=== PATIENT | male | born 1960 | race Hispanic/Latino ===

== ENCOUNTER 2018-07-02 11:58 | Emergency (ER) | payer MEDICARE ==
[2018-07-02 12:33] LABS: Basophils % (Auto) 0.5 % (0.0-1.8); Eosinophils % (Auto) 0.5 % (0.0-4.3); Hematocrit 48.4 % (35.5-45.6); Hemoglobin 16.3 gm/dl (11.8-15.2); Lymphocytes # (Auto) 2.1 K/mm3 (1.2-5.4); Lymphocytes % (Auto) 23.9 % (13.4-35.0); Mean Corpuscular HGB Conc 34 % (32-34); Mean Corpuscular Hemoglobin 31 pg (28-32); Mean Corpuscular Volume 90 fl (84-94); Monocytes # (Auto) 1.1 K/mm3 (0.0-0.8); Platelet Count 340 K/mm3 (140-440); Red Blood Count 5.35 M/mm3 (3.65-5.03); Red Cell Distribution Width 14.2 % (13.2-15.2)
[2018-07-02 12:49] LABS: Alanine Aminotransferase 14 units/L (7-56); Albumin 4.1 g/dL (3.9-5); BUN/Creatinine Ratio 18; Blood Urea Nitrogen 14 mg/dL (9-20); Calcium 9.1 mg/dL (8.4-10.2); Hemolysis Index 22
[2018-07-02 13:11] LABS: Bacteria,Urine 4+ /HPF (Negative); Bilirubin,Urine NEG (Negative); Blood,Urine MOD (Negative); Color,Urine Yellow (Yellow); Mucus,Urine 1+ /HPF; Protein,Urine >500 mg/dL (Negative); Urobilinogen,Urine < 2.0 mg/dL (<2.0); WBC,Urine > 182.0 /HPF (0.0-6.0)
[2018-07-02] MEDS ORDERED: NACL 0.9% 1000 ML 1,000 ML IV ONE (14:26)
--- NOTE | 2018-07-02 14:27 | Emergency Department Report ---
ED General Adult HPI - General Chief complaint: Urogenital-Male Stated complaint: UTI Time Seen by Provider: 07/02/18 14:15 Source: patient, family, RN notes reviewed Mode of arrival: Wheelchair Limitations: Physical Limitation - History of Present Illness Initial comments: This is a 57-year-old gentleman who is not known to this provider previously. The patient endorses a past medical history of stroke, residual right-sided weakness, deaf. He is accompanied by his family who provide most of the history. His primary care doctor is Dr. Torito Suazo. He is sent to the ER for evaluation of urinary symptoms. Patient's been having frequent urination and urgency. His family endorses that the patient is at his normal mental status and appears to be at baseline. They deny fevers, chills, lethargy, irritability or projectile vomiting. Patient has baseline poor cognitive skills, the family indicates that he is very worried about being in the hospital. Patient at some point complained of lower back pain but denies this to me. Family endorses no exacerbating or relieving factors, or radiation effect is. They report that the patient gets frequent UTIs, that he had a urinary tract infection 2 months ago, and a his presentation today does not appear to be any different from prior presentation. -: Gradual, days(s) Severity scale (0 -10): 5 Consistency: constant Improves with: none Worsens with: none Associated Symptoms: weakness (chronic). denies: chest pain, cough, diaphoresis , fever/chills, headaches, loss of appetite, malaise, nausea/vomiting, rash, seizure, shortness of breath, syncope - Related Data Previous Rx's Medication Instructions Recorded Last Taken Type Phenazopyridine [Pyridium] 100 mg PO TID PRN #6 tab 07/02/18 Unknown Rx levoFLOXacin [Levaquin] 750 mg PO QDAY #7 tablet 07/02/18 Unknown Rx Allergies Allergy/AdvReac Type Severity Reaction Status Date / Time No Known Allergies Allergy Unverified 07/02/18 12:01 ED Review of Systems ROS: Stated complaint: UTI Other details as noted in HPI Constitutional: denies: fever Eyes: denies: eye discharge ENT: denies: epistaxis Respiratory: denies: cough Cardiovascular: denies: syncope Gastrointestinal: denies: nausea, vomiting Genitourinary: urgency, dysuria, frequency Musculoskeletal: back pain Skin: denies: lesions Neurological: weakness (chronic) ED Past Medical Hx - Past Medical History Previous Medical History?: Yes Hx CVA: Yes (right sided weakness) Hx Seizures: Yes (at age 6 or 7) Additional medical history: mini stroke - Surgical History Past Surgical History?: Yes Additional Surgical History: bilateral leg surgery - Social History Smoking Status: Never Smoker Substance Use Type: None - Medications Home Medications: Home Medications Medication Instructions Recorded Confirmed Last Taken Type Phenazopyridine [Pyridium] 100 mg PO TID PRN #6 tab 07/02/18 Unknown Rx levoFLOXacin [Levaquin] 750 mg PO QDAY #7 tablet 07/02/18 Unknown Rx ED Physical Exam - General Limitations: Physical Limitation General appearance: alert, in no apparent distress - Head Head exam: Present: atraumatic, normocephalic - Eye Eye exam: Present: normal appearance. Absent: nystagmus - ENT ENT exam: Present: normal orophraynx, mucous membranes moist, normal external ear exam - Neck Neck exam: Present: normal inspection, full ROM. Absent: tenderness, meningismus - Respiratory Respiratory exam: Present: normal lung sounds bilaterally. Absent: respiratory distress - Cardiovascular Cardiovascular Exam: Present: regular rate, normal rhythm, normal heart sounds. Absent: bradycardia, tachycardia, irregular rhythm, systolic murmur, diastolic murmur, rubs, gallop - GI/Abdominal GI/Abdominal exam: Present: soft. Absent: distended, tenderness, guarding, rebound, rigid, pulsatile mass - Rectal Rectal exam: Present: normal inspection, other (there is no prior perenium. Chaperoned by nurse RICHARD GRESHAM) - exam: Present: normal inspection, other (chaperonne by RICHARD GRESHAM). Absent: testicular tenderness External exam: Present: normal external exam - Extremities Exam Extremities exam: Present: normal inspection, other (2+ pulses in the upper, lower extremities. Compartments soft. No long bony tenderness) - Back Exam Back exam: Present: normal inspection, full ROM. Absent: CVA tenderness (R), CVA tenderness (L), paraspinal tenderness, vertebral tenderness - Neurological Exam Neurological exam: Present: alert, other (patient is awake. He follows some commands. Left-sided chronic exotropic strabismus. Unable to complete a full detailed neurologic examination secondary to patient's inability to here. Family corroborates that he appears to be his normal mental status.) - Psychiatric Psychiatric exam: Present: normal affect, normal mood - Skin Skin exam: Present: warm, dry, intact, normal color. Absent: rash ED Course Vital Signs 07/02/18 07/02/18 12:01 13:45 Temperature 98.1 F 98.6 F Pulse Rate 101 H 89 Respiratory 16 22 Rate Blood Pressure 131/87 Blood Pressure 140/90 [Left] O2 Sat by Pulse 94 94 Oximetry ED Medical Decision Making - Lab Data Result diagrams: 07/02/18 12:17 07/02/18 12:13 Vital Signs 07/02/18 07/02/18 12:01 13:45 Temperature 98.1 F 98.6 F Pulse Rate 101 H 89 Respiratory 16 22 Rate Blood Pressure 131/87 Blood Pressure 140/90 [Left] O2 Sat by Pulse 94 94 Oximetry Lab Results 07/02/18 07/02/18 07/02/18 Range/Units 12:13 12:17 12:49 WBC 8.8 (4.5-11.0) K/mm3 RBC 5.35 H (3.65-5.03) M/mm3 Hgb 16.3 H (11.8-15.2) gm/dl Hct 48.4 H (35.5-45.6) % MCV 90 (84-94) fl MCH 31 (28-32) pg MCHC 34 (32-34) % RDW 14.2 (13.2-15.2) % Plt Count 340 (140-440) K/mm3 Lymph % (Auto) 23.9 (13.4-35.0) % [place] % (Auto) 13.0 H (0.0-7.3) % Eos % (Auto) 0.5 (0.0-4.3) % Baso % (Auto) 0.5 (0.0-1.8) % Lymph # 2.1 (1.2-5.4) K/mm3 [place] # 1.1 H (0.0-0.8) K/mm3 Eos # 0.0 (0.0-0.4) K/mm3 Baso # 0.0 (0.0-0.1) K/mm3 Seg Neutrophils % 62.1 (40.0-70.0) % Seg Neutrophils # 5.5 (1.8-7.7) K/mm3 Sodium 140 (137-145) mmol/L Potassium 4.1 (3.6-5.0) mmol/L Chloride 101.6 (98-107) mmol/L Carbon Dioxide 25 (22-30) mmol/L Anion Gap 18 mmol/L BUN 14 (9-20) mg/dL Creatinine 0.8 (0.8-1.5) mg/dL Estimated GFR > 60 ml/min BUN/Creatinine Ratio 18 % Glucose 97 (75-100) mg/dL Calcium 9.1 (8.4-10.2) mg/dL Total Bilirubin 0.40 (0.1-1.2) mg/dL AST 19 (5-40) units/L ALT 14 (7-56) units/L Alkaline Phosphatase 74 (35-129) units/L Total Protein 7.4 (6.3-8.2) g/dL Albumin 4.1 (3.9-5) g/dL Albumin/Globulin Ratio 1.2 % Urine Color Yellow (Yellow) Urine Turbidity Turbid (Clear) Urine pH 6.0 (5.0-7.0) Ur Specific [place] 1.016 (1.003-1.030) Urine Protein >500 (Negative) mg/dL Urine Glucose (UA) Neg (Negative) mg/dL Urine Ketones Neg (Negative) mg/dL Urine Blood Mod (Negative) Urine Nitrite Neg (Negative) Urine Bilirubin Neg (Negative) Urine Urobilinogen < 2.0 (<2.0) mg/dL Ur Leukocyte Esterase Lg (Negative) Urine WBC (Auto) > 182.0 H (0.0-6.0) /HPF Urine RBC (Auto) 115.0 (0.0-6.0) /HPF U Epithel Cells (Auto) 2.0 (0-13.0) /HPF Urine Bacteria (Auto) 4+ (Negative) /HPF Urine WBC Clumps 2+ /HPF Urine Mucus 1+ /HPF - Medical Decision Making Differential diagnosis, including but not limited to: Urinary tract infection, pyelonephritis Assessment and plan: 57-year-old male with urinary symptoms but no CVA tenderness, no fever, no vomiting, no leukocytosis. Family endorses history of frequent and intermittent urinary tract infections last of which was 2 months ago. Even his physical exam, vital signs and laboratory studies, I think it is very unlikely the patient has an upper urinary tract infection. Extensive discussion had with patient's family. They are amenable to a trial of oral outpatient antibiotic therapy. They're reliable to bring the patient back if he decompensates clinically. The patient has been observed in the ER for hours without clinical decompensation. He is loaded with 1 g of Rocephin and will be discharged with Levaquin. The risks of fluoroquinolone tendinopathy were discussed with family who verbalized understanding, including risk of tendon rupture, and they gave verbal consent for this medication. Critical care attestation.: If time is entered above; I have spent that time in minutes in the direct care of this critically ill patient, excluding procedure time. ED Disposition Clinical Impression: UTI (urinary tract infection) Qualifiers: Urinary tract infection type: acute cystitis Disposition: - TO HOME OR SELFCARE Is pt being admited?: No Does the pt Need Aspirin: No Condition: Stable Instructions: Urinary Tract Infection in Men (ED) Additional Instructions: Take the medications as directed. Return in 2 days for repeat checkup/ evaluation. Cultures were sent today, and was also be available in the next 3- 5 days. Have your primary care doctor contact the medical records department to obtain culture results. Take the Pyridium medication as needed for discomfort. Side effect of this medication includes change in color of body fluids to [place]. Return to the ER right away with fevers, lethargy, irritability, projectile vomiting, change in mental status, confusion, inability to tolerate liquid feeds. Referrals: TORITO SUAZO MD [Referring] - 3-5 Days
[2018-07-02] MEDS ORDERED: ROCEPHIN/NS 1 GM/50 ML 1 GM/50 ML BAG IV ONE (15:00)
[2018-07-02 17:41] VITALS: BP 143/83
== END 2018-07-02 16:10 | disposition home or self-care (01) ==
LOC: ED 11:58
DX: N30.00 Acute cystitis without hematuria (principal); Z86.73 Personal history of transient ischemic attack (TIA), and cerebral infarction without residual deficits
CPT/HCPCS: 36415; 80053; 81001; 85025; 87086; 96365; 99283; J0696; J7030

== ENCOUNTER 2019-10-09 08:16 | Inpatient (IN) | payer MEDICARE ==
[2019-10-09] MEDS ORDERED: SODIUM CHLORIDE 0.9% 1000 ML IV SOLN IV ONE (09:39)
--- NOTE | 2019-10-09 09:39 | Emergency Department Report ---
ED General Adult HPI - General Chief complaint: Urogenital-Male Stated complaint: POSS PROSTATE ISSUE/PAIN Time Seen by Provider: 10/09/19 09:38 Source: patient Mode of arrival: Wheelchair Limitations: Altered Mental Status - History of Present Illness Initial comments: Pt is a pleasant 58-year-old male who is brought to the ER by his brother who is his caregiver for concerns with patient's inability to urinate. Patient has an underlying seizure disorder since a child and he has had a stroke and therefore has limited mobility and impaired mental density. Does answer questions but she have to deliberately ask the patient otherwise he will allow his brother to answer for him. Patient is cooperative. Brother states that the patient does not walk that he gets around by crawling. Pt appears well cared for PCP Dr. Thomas Patient is followed by a home health provider and has been treated with 2 recent courses of antibiotics including sulfa and now Cipro. That brother reports that the difficulties with urinating are getting worse. He denies any fever. Patient does not appear to be in pain and denies pain. 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 CVA HPLD DEPRESSION RX LIPITOR CELEXA -: Gradual, days(s) Associated Symptoms: denies other symptoms Treatments Prior to Arrival: other - Related Data Previous Rx's Medication Instructions Recorded Last Taken Type Phenazopyridine [Pyridium] 100 mg PO TID PRN #6 tab 07/02/18 Unknown Rx levoFLOXacin [Levaquin] 750 mg PO QDAY #7 tablet 07/02/18 Unknown Rx Allergies Allergy/AdvReac Type Severity Reaction Status Date / Time No Known Allergies Allergy Unverified 07/02/18 12:01 ED Review of Systems ROS: Stated complaint: POSS PROSTATE ISSUE/PAIN Other details as noted in HPI Comment: All other systems reviewed and negative ED Past Medical Hx - Past Medical History Hx CVA: Yes (right sided weakness) Hx Seizures: Yes (at age 6 or 7) Additional medical history: mini stroke - Surgical History Past Surgical History?: Yes Additional Surgical History: bilateral leg surgery - Family History Family history: no significant - Social History Smoking Status: Never Smoker Substance Use Type: None - Medications Home Medications: Home Medications Medication Instructions Recorded Confirmed Last Taken Type Phenazopyridine [Pyridium] 100 mg PO TID PRN #6 tab 07/02/18 Unknown Rx levoFLOXacin [Levaquin] 750 mg PO QDAY #7 tablet 07/02/18 Unknown Rx ED Physical Exam - General Limitations: Altered Mental Status General appearance: alert, in no apparent distress - Head Head exam: Present: atraumatic, normocephalic - Eye Eye exam: Present: normal appearance - ENT ENT exam: Present: mucous membranes dry - Neck Neck exam: Present: normal inspection - Respiratory Respiratory exam: Present: normal lung sounds bilaterally. Absent: respiratory distress - Cardiovascular Cardiovascular Exam: Present: regular rate, normal rhythm. Absent: systolic murmur, diastolic murmur, rubs, gallop - GI/Abdominal GI/Abdominal exam: Present: soft, normal bowel sounds - Rectal Rectal exam: Present: deferred - Extremities Exam Extremities exam: Present: normal inspection - Back Exam Back exam: Present: normal inspection - Neurological Exam Neurological exam: Present: alert - Psychiatric Psychiatric exam: Present: other - Skin Skin exam: Present: warm, dry, normal color. Absent: rash ED Course Vital Signs 10/09/19 10/09/19 10/09/19 08:25 11:22 11:24 Temperature 97.6 F Pulse Rate 81 88 Respiratory 18 16 18 Rate Blood Pressure 134/84 Blood Pressure 134/73 [Left] O2 Sat by Pulse 94 94 Oximetry ED Medical Decision Making - Lab Data Result diagrams: 10/09/19 10:23 10/09/19 10:23 - Medical Decision Making Labs 10/09/19 10/09/19 10/09/19 10:23 10:23 10:23 WBC 8.7 RBC 4.66 Hgb 14.4 Hct 42.5 MCV 91 MCH 31 MCHC 34 RDW 14.4 Plt Count 330 Lymph % (Auto) 18.8 [place] % (Auto) 11.7 H Eos % (Auto) 0.1 Baso % (Auto) 1.6 Lymph # 1.6 [place] # 1.0 H Eos # 0.0 Baso # 0.1 Seg Neutrophils % 67.8 Seg Neutrophils # 5.9 Sodium 138 Potassium 3.2 L Chloride 97.0 L Carbon Dioxide 23 Anion Gap 21 BUN 10 Creatinine 0.8 Estimated GFR > 60 BUN/Creatinine Ratio 13 Glucose 113 H Lactic Acid 1.30 Calcium 9.0 Total Bilirubin 0.60 AST 27 ALT 19 Alkaline Phosphatase 53 Total Protein 6.9 Albumin 4.0 Albumin/Globulin Ratio 1.4 Urine Color Urine Turbidity Urine pH Ur Specific [place] Urine Protein Urine Glucose (UA) Urine Ketones Urine Blood Urine Nitrite Urine Bilirubin Urine Urobilinogen Ur Leukocyte Esterase Urine WBC (Auto) Urine RBC (Auto) Urine Bacteria (Auto) 10/09/19 Unknown WBC RBC Hgb Hct MCV MCH MCHC RDW Plt Count Lymph % (Auto) [place] % (Auto) Eos % (Auto) Baso % (Auto) Lymph # [place] # Eos # Baso # Seg Neutrophils % Seg Neutrophils # Sodium Potassium Chloride Carbon Dioxide Anion Gap BUN Creatinine Estimated GFR BUN/Creatinine Ratio Glucose Lactic Acid Calcium Total Bilirubin AST ALT Alkaline Phosphatase Total Protein Albumin Albumin/Globulin Ratio Urine Color [place] Urine Turbidity Slightly-cloudy Urine pH 6.0 Ur Specific [place] 1.011 Urine Protein 100 mg/dl Urine Glucose (UA) Neg Urine Ketones Neg Urine Blood Mod Urine Nitrite Pos Urine Bilirubin Neg Urine Urobilinogen 4.0 Ur Leukocyte Esterase Mod Urine WBC (Auto) 85.0 H Urine RBC (Auto) 8.0 Urine Bacteria (Auto) 4+ Vital Signs 10/09/19 10/09/19 10/09/19 08:25 11:22 11:24 Temperature 97.6 F Pulse Rate 81 88 Respiratory 18 16 18 Rate Blood Pressure 134/84 Blood Pressure 134/73 [Left] O2 Sat by Pulse 94 94 Oximetry LABS NOTED CULTURES PENDING [address] SEARS FOR COMPLICATED UTI pt and brother updated on plan of care Rocephin Q24 hours 2 GM IV - Differential Diagnosis RO UROSEPSIS/URINARY RETENTION/UTI Critical care attestation.: If time is entered above; I have spent that time in minutes in the direct care o f this critically ill patient, excluding procedure time. ED Disposition Clinical Impression: Complicated UTI (urinary tract infection), Debility Disposition: OP ADMIT IP TO THIS HOSP Is pt being admited?: Yes Does the pt Need Aspirin: No Condition: Stable Referrals: PRIMARY CARE, [Primary Care Provider] - 3-5 Days Time of Disposition: 12:01
[2019-10-09] MEDS: cefTRIAXone/NS 1 GM/50 ML 1 GM/50 ML BAG IV SCH ×2 (10:17→11:19)
[2019-10-09 10:36] LABS: Basophils # (Auto) 0.1 K/mm3 (0.0-0.1); Basophils % (Auto) 1.6 % (0.0-1.8); Eosinophils % (Auto) 0.1 % (0.0-4.3); Hematocrit 42.5 % (35.5-45.6); Hemoglobin 14.4 gm/dl (11.8-15.2); Lymphocytes # (Auto) 1.6 K/mm3 (1.2-5.4); Lymphocytes % (Auto) 18.8 % (13.4-35.0); Mean Corpuscular HGB Conc 34 % (32-34); Mean Corpuscular Volume 91 fl (84-94); Monocytes % (Auto) 11.7 % (0.0-7.3); Platelet Count 330 K/mm3 (140-440); Red Blood Count 4.66 M/mm3 (3.65-5.03); Red Cell Distribution Width 14.4 % (13.2-15.2)
[2019-10-09 11:00] LABS: Alanine Aminotransferase 19 units/L (7-56); BUN/Creatinine Ratio 13; Blood Urea Nitrogen 10 mg/dL (9-20); Hemolysis Index 3
[2019-10-09 11:21] LABS: Bacteria,Urine 4+ /HPF (Negative); Bilirubin,Urine NEG (Negative); Blood,Urine MOD (Negative); Color,Urine Amber (Yellow)
[2019-10-09] MEDS ORDERED: POTASSIUM CHLORIDE ER 20 MEQ TAB PO ONE (11:57)
[2019-10-09] MEDS ORDERED: cefTRIAXone/NS 2 GM/100 ML 2 GM/100 ML BAG IV SCH (13:00)
--- NOTE | 2019-10-09 17:17 | History and Physical Report ---
History of Present Illness Date of examination: 10/09/19 Date of admission: 10/09/19 12:01 Chief complaint: Difficulty urinating for 1 day History of present illness: 58-year-old male with history of cerebral palsy who has difficulty walking and recurrent urinary tract infections brought in by the brother for difficulty in urination and dysuria. Patient is cooperative. Patient goes around the home by crawling. Patient is well cared for. Patient had recent antibiotic treatment with sulfa and Cipro but he continues to have dysuria and difficulty urinating. Pt is a pleasant 58-year-old male who is brought to the ER by his brother who is his caregiver for concerns with patient's inability to urinate. Past Medical History CVA: Yes (right sided weakness) Seizures: Yes (at age 6 or 7) Additional medical history: mini stroke Surgical History Past Surgical History?: Yes Additional Surgical History: bilateral leg surgery Family History Family history: no significant Social History Smoking Status: Never Smoker Substance Use Type: None Medications Home Medications: Home Medications Medication Instructions Recorded Confirmed Last Taken Type Phenazopyridine [Pyridium] 100 mg PO TID PRN #6 tab 07/02/18 Unknown Rx levoFLOXacin [Levaquin] 750 mg PO QDAY #7 tablet 07/02/18 Unknown Rx Review of Systems ROS: Stated complaint: POSS PROSTATE ISSUE/PAIN Other details as noted in HPI Comment: All other systems reviewed and negative Medications and Allergies Allergies Allergy/AdvReac Type Severity Reaction Status Date / Time No Known Allergies Allergy Unverified 07/02/18 12:01 Home Medications Medication Instructions Recorded Confirmed Last Taken Type Phenazopyridine [Pyridium] 100 mg PO TID PRN #6 tab 07/02/18 10/09/19 Unknown Rx levoFLOXacin [Levaquin] 750 mg PO QDAY #7 tablet 07/02/18 10/09/19 Unknown Rx Aspirin 325 mg PO QDAY 10/09/19 10/09/19 Unknown History AtorvaSTATin [Lipitor] 10 mg PO QHS 10/09/19 10/09/19 Unknown History Citalopram [celeXA] 40 mg PO QDAY 10/09/19 10/09/19 Unknown History Active Meds: Active Medications Aspirin (Aspirin) 325 mg PO QDAY SHIVA Atorvastatin Calcium (Atorvastatin) 10 mg PO QHS SHIVA Citalopram Hydrobromide (Celexa) 40 mg PO QDAY [facility] Ceftriaxone Sodium (Rocephin/Ns 1 Gm/50 Ml) 1 gm in 50 mls @ 100 mls/hr IV Q24HR [facility]; Protocol Stop: 10/10/19 10:29 Last Admin: 10/09/19 11:19 Dose: 100 mls/hr Documented by: Exam - Constitutional Vitals: Temp Pulse Resp BP Pulse Ox 97.6 F 88 18 134/73 94 10/09/19 08:25 10/09/19 11:22 10/09/19 11:24 10/09/19 11:22 10/09/19 11:22 General appearance: Present: no acute distress, well-nourished - EENT Eyes: Present: PERRL ENT: hearing intact, clear oral mucosa - Neck Neck: Present: supple, normal ROM - Respiratory Respiratory effort: normal Respiratory: bilateral: CTA - Cardiovascular Heart rate: 78 Rhythm: regular Heart Sounds: Present: S1 & S2. Absent: rub, click - Extremities Extremities: no ischemia, pulses intact, pulses symmetrical, No edema Peripheral Pulses: within normal limits - Abdominal General gastrointestinal: Present: soft, non-tender, non-distended, normal bowel sounds Male genitourinary: Present: normal - Rectal Rectal Exam: deferred - Integumentary Integumentary: Present: clear, warm, dry - Musculoskeletal Musculoskeletal: generalized weakness - Psychiatric Psychiatric: appropriate mood/affect, other (Patient has mental retardation secondary to cerebral palsy) - Neurologic Neurologic: CNII-XII intact, moves all extremities - Allied Health Allied health notes reviewed: nursing, case management Results - Labs CBC & Chem 7: 10/09/19 10:23 10/09/19 10:23 Labs: Laboratory Last Values WBC 8.7 K/mm3 (4.5-11.0) 10/09/19 10:23 RBC 4.66 M/mm3 (3.65-5.03) 10/09/19 10:23 Hgb 14.4 gm/dl (11.8-15.2) 10/09/19 10:23 Hct 42.5 % (35.5-45.6) 10/09/19 10:23 MCV 91 fl (84-94) 10/09/19 10:23 MCH 31 pg (28-32) 10/09/19 10:23 MCHC 34 % (32-34) 10/09/19 10:23 RDW 14.4 % (13.2-15.2) 10/09/19 10:23 Plt Count 330 K/mm3 (140-440) 10/09/19 10:23 Lymph % (Auto) 18.8 % (13.4-35.0) 10/09/19 10:23 [place] % (Auto) 11.7 % (0.0-7.3) H 10/09/19 10:23 Eos % (Auto) 0.1 % (0.0-4.3) 10/09/19 10:23 Baso % (Auto) 1.6 % (0.0-1.8) 10/09/19 10:23 Lymph # 1.6 K/mm3 (1.2-5.4) 10/09/19 10:23 [place] # 1.0 K/mm3 (0.0-0.8) H 10/09/19 10:23 Eos # 0.0 K/mm3 (0.0-0.4) 10/09/19 10:23 Baso # 0.1 K/mm3 (0.0-0.1) 10/09/19 10:23 Seg Neutrophils % 67.8 % (40.0-70.0) 10/09/19 10:23 Seg Neutrophils # 5.9 K/mm3 (1.8-7.7) 10/09/19 10:23 Sodium 138 mmol/L (137-145) 10/09/19 10:23 Potassium 3.2 mmol/L (3.6-5.0) L 10/09/19 10:23 Chloride 97.0 mmol/L (98-107) L 10/09/19 10:23 Carbon Dioxide 23 mmol/L (22-30) 10/09/19 10:23 Anion Gap 21 mmol/L 10/09/19 10:23 BUN 10 mg/dL (9-20) 10/09/19 10:23 Creatinine 0.8 mg/dL (0.8-1.5) 10/09/19 10:23 Estimated GFR > 60 ml/min 10/09/19 10:23 BUN/Creatinine Ratio 13 % 10/09/19 10:23 Glucose 113 mg/dL (75-100) H 10/09/19 10:23 Lactic Acid 1.30 mmol/L (0.7-2.0) 10/09/19 10:23 Calcium 9.0 mg/dL (8.4-10.2) 10/09/19 10:23 Total Bilirubin 0.60 mg/dL (0.1-1.2) 10/09/19 10:23 AST 27 units/L (5-40) 10/09/19 10:23 ALT 19 units/L (7-56) 10/09/19 10:23 Alkaline Phosphatase 53 units/L (35-129) 10/09/19 10:23 Total Protein 6.9 g/dL (6.3-8.2) 10/09/19 10:23 Albumin 4.0 g/dL (3.9-5) 10/09/19 10:23 Albumin/Globulin Ratio 1.4 % 10/09/19 10:23 Urine Color [place] (Yellow) 10/09/19 Unknown Urine Turbidity Slightly-cloudy (Clear) 10/09/19 Unknown Urine pH 6.0 (5.0-7.0) 10/09/19 Unknown Ur Specific [place] 1.011 (1.003-1.030) 10/09/19 Unknown Urine Protein 100 mg/dl mg/dL (Negative) 10/09/19 Unknown Urine Glucose (UA) Neg mg/dL (Negative) 10/09/19 Unknown Urine Ketones Neg mg/dL (Negative) 10/09/19 Unknown Urine Blood Mod (Negative) 10/09/19 Unknown Urine Nitrite Pos (Negative) 10/09/19 Unknown Urine Bilirubin Neg (Negative) 10/09/19 Unknown Urine Urobilinogen 4.0 mg/dL (<2.0) 10/09/19 Unknown Ur Leukocyte Esterase Mod (Negative) 10/09/19 Unknown Urine WBC (Auto) 85.0 /HPF (0.0-6.0) H 10/09/19 Unknown Urine RBC (Auto) 8.0 /HPF (0.0-6.0) 10/09/19 Unknown Urine Bacteria (Auto) 4+ /HPF (Negative) 10/09/19 Unknown Short CBC 10/09/19 Range/Units 10:23 WBC 8.7 (4.5-11.0) K/mm3 Hgb 14.4 (11.8-15.2) gm/dl Hct 42.5 (35.5-45.6) % Plt Count 330 (140-440) K/mm3 BMP 10/09/19 10:23 Sodium 138 Potassium 3.2 L Chloride 97.0 L Carbon Dioxide 23 BUN 10 Creatinine 0.8 Glucose 113 H Calcium 9.0 Liver Function 10/09/19 Range/Units 10:23 Total Bilirubin 0.60 (0.1-1.2) mg/dL AST 27 (5-40) units/L ALT 19 (7-56) units/L Alkaline Phosphatase 53 (35-129) units/L Albumin 4.0 (3.9-5) g/dL Urine 10/09/19 Range/Units Unknown Urine Color [place] (Yellow) Urine pH 6.0 (5.0-7.0) Ur Specific [place] 1.011 (1.003-1.030) Urine Protein 100 mg/dl (Negative) mg/dL Urine Glucose (UA) Neg (Negative) mg/dL Assessment and Plan Advance Directives: Yes (Full code) VTE prophylaxis?: Chemical Plan of care discussed with patient/family: Yes - Patient Problems (1) Complicated UTI (urinary tract infection) Current Visit: Yes Status: Acute Plan to address problem: Patient is initiated on IV fluids and IV Rocephin pending urine cultures (2) Hypokalemia Current Visit: Yes Status: Acute Plan to address problem: Supplemented (3) Cerebral palsy Current Visit: Yes Status: Chronic 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
[2019-10-09] MEDS: CITALOPRAM 20 MG TAB PO SCH (18:21)
[2019-10-09] MEDS: ASPIRIN 325 MG TAB PO SCH (18:21)
[2019-10-09] MEDS ORDERED: ONDANSETRON 4 MG/2 ML INJ IV PRN (23:55)
[2019-10-09] MEDS ORDERED: HYDROmorphone 1 MG/1 ML INJ IV PRN (23:55)
[2019-10-09] MEDS ORDERED: ACETAMINOPHEN 325 MG TAB PO PRN (23:55)
[2019-10-09] MEDS ORDERED: oxyCODONE /ACETAMINOPHEN 5-325MG TAB PO PRN (23:55)
[2019-10-10 08:45] LABS: Basophils # (Auto) 0.1 K/mm3 (0.0-0.1); Basophils % (Auto) 0.7 % (0.0-1.8); Eosinophils # (Auto) 0.1 K/mm3 (0.0-0.4); Hemoglobin 12.7 gm/dl (11.8-15.2); Lymphocytes # (Auto) 2.2 K/mm3 (1.2-5.4); Lymphocytes % (Auto) 24.5 % (13.4-35.0); Monocytes # (Auto) 1.1 K/mm3 (0.0-0.8); Monocytes % (Auto) 12.3 % (0.0-7.3)
[2019-10-10 08:54] LABS: Hematocrit 37.1 % (35.5-45.6); Mean Corpuscular HGB Conc 34 % (32-34); Mean Corpuscular Volume 92 fl (84-94); Platelet Count 278 K/mm3 (140-440); Red Blood Count 4.01 M/mm3 (3.65-5.03)
[2019-10-10 09:08] LABS: Alanine Aminotransferase 17 units/L (7-56); Albumin 3.3 g/dL (3.9-5); BUN/Creatinine Ratio 15; Blood Urea Nitrogen 9 mg/dL (9-20); Calcium 8.4 mg/dL (8.4-10.2); Hemolysis Index 6
--- NOTE | 2019-10-10 10:31 | Progress Note ---
Assessment and Plan Assessment and plan: Patient is a 58-year-old man with history of cerebral palsy and BPH who has difficulty walking and recurrent urinary tract infections brought in by the brother for difficulty in urination and dysuria. Patient is cooperative. September 29 he was given Bactrim and completed coarse but not did not help so he was given Cipro on 10/06/19 without success. -Complicated UTI (urinary tract infection) failed outpatient oral therapy: Patient is initiated on IV fluids and IV Rocephin pending urine cultures -Urinary Retention: get Renal Ultrasound, continue miramontes -Hypokalemia: repleted and recheck -Cerebral palsy: DVT prophylaxis: Heparin 5000 every 12 and GI prophylaxis History Interval history: Patient was seen and examined. Follow-up on current diagnosis of Urinary retention, UTi. Overnight uneventful. Patient does talk much. Imaging, nursing note, chart, labs and old chart reviewed. Discussed with patient and Twin brother José Luis at bedside. The miramontes insertion helped relieved the pain Hospitalist Physical - Physical exam Narrative exam: GEN: thin frail awake HEENT: NCAT, EOMI, PERRL, OP Clear NECK: supple, no adenopathy, no thyromegaly, no JVD CVS/HEART: RRR, normal S1S2, pulses present bilaterally CHEST/LUNGS: CTA B, Symmetrical chest expansion, good air entry bilaterally GI/Abdomen: soft, NTND, good bowel sounds, no guarding or rebound /Bladder: no suprapubic tenderness, no CVA or paraspinal tenderness EXT/Skin: atrophic limbs MSK: FROM x 4 Neuro: CN 2-12 grossly intact, no new focal deficits Psych: calm - Constitutional Vitals: Temp Pulse Resp BP Pulse Ox 98.3 F 53 L 18 100/58 94 10/10/19 06:01 10/10/19 06:01 10/10/19 06:01 10/10/19 06:01 10/10/19 06:01 General appearance: Present: no acute distress. Absent: well-nourished Results - Labs CBC & Chem 7: 10/10/19 06:42 10/10/19 06:42 Labs: Laboratory Last Values WBC 8.8 K/mm3 (4.5-11.0) 10/10/19 06:42 RBC 4.01 M/mm3 (3.65-5.03) 10/10/19 06:42 Hgb 12.7 gm/dl (11.8-15.2) 10/10/19 06:42 Hct 37.1 % (35.5-45.6) 10/10/19 06:42 MCV 92 fl (84-94) 10/10/19 06:42 MCH 32 pg (28-32) 10/10/19 06:42 MCHC 34 % (32-34) 10/10/19 06:42 RDW 14.0 % (13.2-15.2) 10/10/19 06:42 Plt Count 278 K/mm3 (140-440) 10/10/19 06:42 Lymph % (Auto) 24.5 % (13.4-35.0) 10/10/19 06:42 [place] % (Auto) 12.3 % (0.0-7.3) H 10/10/19 06:42 Eos % (Auto) 1.0 % (0.0-4.3) 10/10/19 06:42 Baso % (Auto) 0.7 % (0.0-1.8) 10/10/19 06:42 Lymph # 2.2 K/mm3 (1.2-5.4) 10/10/19 06:42 [place] # 1.1 K/mm3 (0.0-0.8) H 10/10/19 06:42 Eos # 0.1 K/mm3 (0.0-0.4) 10/10/19 06:42 Baso # 0.1 K/mm3 (0.0-0.1) 10/10/19 06:42 Seg Neutrophils % 61.5 % (40.0-70.0) 10/10/19 06:42 Seg Neutrophils # 5.4 K/mm3 (1.8-7.7) 10/10/19 06:42 Sodium 137 mmol/L (137-145) 10/10/19 06:42 Potassium 3.4 mmol/L (3.6-5.0) L 10/10/19 06:42 Chloride 100.4 mmol/L (98-107) 10/10/19 06:42 Carbon Dioxide 25 mmol/L (22-30) 10/10/19 06:42 Anion Gap 15 mmol/L 10/10/19 06:42 BUN 9 mg/dL (9-20) 10/10/19 06:42 Creatinine 0.6 mg/dL (0.8-1.5) L 10/10/19 06:42 Estimated GFR > 60 ml/min 10/10/19 06:42 BUN/Creatinine Ratio 15 % 10/10/19 06:42 Glucose 93 mg/dL (75-100) 10/10/19 06:42 Lactic Acid 2.20 mmol/L (0.7-2.0) H* 10/09/19 18:51 Calcium 8.4 mg/dL (8.4-10.2) 10/10/19 06:42 Total Bilirubin 0.60 mg/dL (0.1-1.2) 10/10/19 06:42 AST 25 units/L (5-40) 10/10/19 06:42 ALT 17 units/L (7-56) 10/10/19 06:42 Alkaline Phosphatase 45 units/L (35-129) 10/10/19 06:42 Total Protein 5.6 g/dL (6.3-8.2) L 10/10/19 06:42 Albumin 3.3 g/dL (3.9-5) L 10/10/19 06:42 Albumin/Globulin Ratio 1.4 % 10/10/19 06:42 Urine Color Jeanie (Yellow) 10/09/19 Unknown Urine Turbidity Slightly-cloudy (Clear) 10/09/19 Unknown Urine pH 6.0 (5.0-7.0) 10/09/19 Unknown Ur Specific [place] 1.011 (1.003-1.030) 10/09/19 Unknown Urine Protein 100 mg/dl mg/dL (Negative) 10/09/19 Unknown Urine Glucose (UA) Neg mg/dL (Negative) 10/09/19 Unknown Urine Ketones Neg mg/dL (Negative) 10/09/19 Unknown Urine Blood Mod (Negative) 10/09/19 Unknown Urine Nitrite Pos (Negative) 10/09/19 Unknown Urine Bilirubin Neg (Negative) 10/09/19 Unknown Urine Urobilinogen 4.0 mg/dL (<2.0) 10/09/19 Unknown Ur Leukocyte Esterase Mod (Negative) 10/09/19 Unknown Urine WBC (Auto) 85.0 /HPF (0.0-6.0) H 10/09/19 Unknown Urine RBC (Auto) 8.0 /HPF (0.0-6.0) 10/09/19 Unknown Urine Bacteria (Auto) 4+ /HPF (Negative) 10/09/19 Unknown Active Medications - Current Medications Current Medications: Generic Name Dose Route Start Last Admin Trade Name Freq PRN Reason Stop Dose Admin Acetaminophen 650 mg 10/09/19 23:55 Tylenol PO Q4H PRN Pain MILD(1-3)/Fever >100.5/LORENZO Aspirin 325 mg 10/09/19 17:00 10/09/19 18:21 Aspirin PO 325 mg QDAY SHIVA Administration Atorvastatin Calcium 10 mg 10/09/19 22:00 10/09/19 22:32 Atorvastatin PO 10 mg QHS SHIVA Administration Citalopram Hydrobromide 40 mg 10/09/19 17:00 10/09/19 18:21 Celexa PO 40 mg QDAY SHIVA Administration Famotidine 20 mg 10/10/19 10:00 Pepcid IV BID [facility] Heparin Sodium (Porcine) 5,000 unit 10/10/19 10:00 Heparin SUB-Q Q12HR [facility] Hydromorphone HCl 0.5 mg 10/09/19 23:55 Dilaudid IV Q3H PRN Pain , Severe (7-10) Dextrose/Sodium Chloride 1,000 mls @ 100 mls/hr 10/09/19 23:45 D5ns IV DIRECT [facility] Ceftriaxone Sodium 2 gm in 100 mls @ 200 mls/hr 10/10/19 10:00 Rocephin/Ns 2 Gm/100 Ml IV Q24HR [facility] Protocol Ondansetron HCl 4 mg 10/09/19 23:55 Zofran IV Q8H PRN Nausea And Vomiting Oxycodone/Acetaminophen 1 tab 10/09/19 23:55 Percocet 5/325 PO Q6H PRN Pain, Moderate (4-6) Sodium Chloride 10 ml 10/10/19 10:00 Sodium Chloride Flush Syringe 10 Ml IV BID [facility] Sodium Chloride 10 ml 10/09/19 23:55 Sodium Chloride Flush Syringe 10 Ml IV PRN PRN LINE FLUSH
[2019-10-10] MEDS: CITALOPRAM 20 MG TAB PO SCH (10:35)
[2019-10-10] MEDS: ASPIRIN 325 MG TAB PO SCH (10:35)
[2019-10-10] MEDS: HEPARIN 5,000 UNIT/1 ML VIAL SUB-Q SCH ×2 (10:36→21:11)
[2019-10-10] MEDS: FAMOTIDINE 20 MG/2 ML INJ IV SCH ×2 (10:36→21:10)
[2019-10-10] MEDS: cefTRIAXone/NS 1 GM/50 ML 1 GM/50 ML BAG IV SCH (10:37)
[2019-10-10] MEDS: cefTRIAXone/NS 2 GM/100 ML 2 GM/100 ML BAG IV SCH (10:39)
[2019-10-10] MEDS: D5W/0.9% NACL 1,000 ML IV SCH ×2 (10:40→21:10)
--- NOTE | 2019-10-10 16:58 | Ultrasound Report ---
Bilateral renal ultrasound. 10/10/2019. HISTORY: Urinary retention. FINDINGS: Right kidney measures 9.7 cm. Cortex is 1.5 cm. Left kidney measures 9 cm. Cortex measures 1.5 cm. Cortical thickness and echogenicity is normal. Negative for mass or obstruction. The bladder is decompressed by Jett catheter. IMPRESSION: Negative renal ultrasound. Signer Name: Derek Zuleta MD Signed: 10/10/2019 4:53 PM Workstation Name: [email or web address]
[2019-10-11] MEDS: FAMOTIDINE 20 MG/2 ML INJ IV SCH ×2 (10:56→22:11)
[2019-10-11] MEDS: CITALOPRAM 20 MG TAB PO SCH (10:56)
[2019-10-11] MEDS: ASPIRIN 325 MG TAB PO SCH (10:57)
[2019-10-11] MEDS: cefTRIAXone/NS 2 GM/100 ML 2 GM/100 ML BAG IV SCH (10:57)
[2019-10-11] MEDS: HEPARIN 5,000 UNIT/1 ML VIAL SUB-Q SCH ×2 (11:24→22:12)
--- NOTE | 2019-10-11 12:17 | Progress Note ---
Assessment and Plan Assessment and plan: Patient is a 58-year-old man with history of cerebral palsy and BPH who has difficulty walking and recurrent urinary tract infections brought in by the brother for difficulty in urination and dysuria. Patient is cooperative. September 29 he was given Bactrim and completed coarse but not did not help so he was given Cipro on 10/06/19 without success. -Complicated UTI (urinary tract infection) failed outpatient oral therapy: Patient is initiated on IV fluids and IV Rocephin pending urine cultures -Urinary Retention: get Renal Ultrasound was normal most likely neurogenic bladder due to CP, continue miramontes (risk of recurrent infection due to miramontes explained and brother's reply was that he already has recurrent UTIs) and outpatient Urology consult -Hypokalemia: repleted and recheck -Cerebral palsy: supportive care DVT prophylaxis: Heparin 5000 every 12 and GI prophylaxis Disposition: continue inpatient, urine culture which is groing GNR await sensitivities since patient failed outpt therapy History Interval history: Patient was seen and examined. Follow-up on current diagnosis of Urinary retention, UTi. Overnight uneventful. Patient does talk much. Imaging, nursing note, chart, labs and old chart reviewed. Discussed with patient. The miramontes insertion helped relieved the pain Hospitalist Physical - Physical exam Narrative exam: GEN: thin frail awake HEENT: NCAT, EOMI, PERRL, OP Clear NECK: supple, no adenopathy, no thyromegaly, no JVD CVS/HEART: RRR, normal S1S2, pulses present bilaterally CHEST/LUNGS: CTA B, Symmetrical chest expansion, good air entry bilaterally GI/Abdomen: soft, NTND, good bowel sounds, no guarding or rebound /Bladder: no suprapubic tenderness, no CVA or paraspinal tenderness EXT/Skin: atrophic limbs MSK: FROM x 4 Neuro: CN 2-12 grossly intact, no new focal deficits Psych: calm - Constitutional Vitals: Temp Pulse Resp BP Pulse Ox 97.8 F 66 18 123/73 91 10/11/19 06:36 10/11/19 06:36 10/11/19 06:36 10/11/19 06:36 10/11/19 06:36 General appearance: Present: no acute distress. Absent: well-nourished Results - Labs CBC & Chem 7: 10/10/19 06:42 10/10/19 06:42 Labs: Laboratory Last Values WBC 8.8 K/mm3 (4.5-11.0) 10/10/19 06:42 RBC 4.01 M/mm3 (3.65-5.03) 10/10/19 06:42 Hgb 12.7 gm/dl (11.8-15.2) 10/10/19 06:42 Hct 37.1 % (35.5-45.6) 10/10/19 06:42 MCV 92 fl (84-94) 10/10/19 06:42 MCH 32 pg (28-32) 10/10/19 06:42 MCHC 34 % (32-34) 10/10/19 06:42 RDW 14.0 % (13.2-15.2) 10/10/19 06:42 Plt Count 278 K/mm3 (140-440) 10/10/19 06:42 Lymph % (Auto) 24.5 % (13.4-35.0) 10/10/19 06:42 [place] % (Auto) 12.3 % (0.0-7.3) H 10/10/19 06:42 Eos % (Auto) 1.0 % (0.0-4.3) 10/10/19 06:42 Baso % (Auto) 0.7 % (0.0-1.8) 10/10/19 06:42 Lymph # 2.2 K/mm3 (1.2-5.4) 10/10/19 06:42 [place] # 1.1 K/mm3 (0.0-0.8) H 10/10/19 06:42 Eos # 0.1 K/mm3 (0.0-0.4) 10/10/19 06:42 Baso # 0.1 K/mm3 (0.0-0.1) 10/10/19 06:42 Seg Neutrophils % 61.5 % (40.0-70.0) 10/10/19 06:42 Seg Neutrophils # 5.4 K/mm3 (1.8-7.7) 10/10/19 06:42 Sodium 137 mmol/L (137-145) 10/10/19 06:42 Potassium 3.4 mmol/L (3.6-5.0) L 10/10/19 06:42 Chloride 100.4 mmol/L (98-107) 10/10/19 06:42 Carbon Dioxide 25 mmol/L (22-30) 10/10/19 06:42 Anion Gap 15 mmol/L 10/10/19 06:42 BUN 9 mg/dL (9-20) 10/10/19 06:42 Creatinine 0.6 mg/dL (0.8-1.5) L 10/10/19 06:42 Estimated GFR > 60 ml/min 10/10/19 06:42 BUN/Creatinine Ratio 15 % 10/10/19 06:42 Glucose 93 mg/dL (75-100) 10/10/19 06:42 Lactic Acid 2.20 mmol/L (0.7-2.0) H* 10/09/19 18:51 Calcium 8.4 mg/dL (8.4-10.2) 10/10/19 06:42 Total Bilirubin 0.60 mg/dL (0.1-1.2) 10/10/19 06:42 AST 25 units/L (5-40) 10/10/19 06:42 ALT 17 units/L (7-56) 10/10/19 06:42 Alkaline Phosphatase 45 units/L (35-129) 10/10/19 06:42 Total Protein 5.6 g/dL (6.3-8.2) L 10/10/19 06:42 Albumin 3.3 g/dL (3.9-5) L 10/10/19 06:42 Albumin/Globulin Ratio 1.4 % 10/10/19 06:42 Urine Color Jeanie (Yellow) 10/09/19 Unknown Urine Turbidity Slightly-cloudy (Clear) 10/09/19 Unknown Urine pH 6.0 (5.0-7.0) 10/09/19 Unknown Ur Specific [place] 1.011 (1.003-1.030) 10/09/19 Unknown Urine Protein 100 mg/dl mg/dL (Negative) 10/09/19 Unknown Urine Glucose (UA) Neg mg/dL (Negative) 10/09/19 Unknown Urine Ketones Neg mg/dL (Negative) 10/09/19 Unknown Urine Blood Mod (Negative) 10/09/19 Unknown Urine Nitrite Pos (Negative) 10/09/19 Unknown Urine Bilirubin Neg (Negative) 10/09/19 Unknown Urine Urobilinogen 4.0 mg/dL (<2.0) 10/09/19 Unknown Ur Leukocyte Esterase Mod (Negative) 10/09/19 Unknown Urine WBC (Auto) 85.0 /HPF (0.0-6.0) H 10/09/19 Unknown Urine RBC (Auto) 8.0 /HPF (0.0-6.0) 10/09/19 Unknown Urine Bacteria (Auto) 4+ /HPF (Negative) 10/09/19 Unknown Active Medications - Current Medications Current Medications: Generic Name Dose Route Start Last Admin Trade Name Freq PRN Reason Stop Dose Admin Acetaminophen 650 mg 10/09/19 23:55 Tylenol PO Q4H PRN Pain MILD(1-3)/Fever >100.5/LORENZO Aspirin 325 mg 10/09/19 17:00 10/11/19 10:57 Aspirin PO 325 mg QDAY SHIVA Administration Atorvastatin Calcium 10 mg 10/09/19 22:00 10/10/19 21:10 Atorvastatin PO 10 mg QHS SHIVA Administration Citalopram Hydrobromide 40 mg 10/09/19 17:00 10/11/19 10:56 Celexa PO 40 mg QDAY SHIVA Administration Famotidine 20 mg 10/10/19 10:00 10/11/19 10:56 Pepcid IV 20 mg BID SHIVA Administration Heparin Sodium (Porcine) 5,000 unit 10/10/19 10:00 10/11/19 11:24 Heparin SUB-Q 5,000 unit Q12HR SHIVA Administration Hydromorphone HCl 0.5 mg 10/09/19 23:55 Dilaudid IV Q3H PRN Pain , Severe (7-10) Dextrose/Sodium Chloride 1,000 mls @ 100 mls/hr 10/09/19 23:45 10/10/19 21:10 D5ns IV 100 mls/hr DIRECT SHIVA Administration Ceftriaxone Sodium 2 gm in 100 mls @ 200 mls/hr 10/10/19 10:00 10/11/19 10:57 Rocephin/Ns 2 Gm/100 Ml IV 200 mls/hr Q24HR SHIVA Administration Protocol Ondansetron HCl 4 mg 10/09/19 23:55 Zofran IV Q8H PRN Nausea And Vomiting Oxycodone/Acetaminophen 1 tab 10/09/19 23:55 Percocet 5/325 PO Q6H PRN Pain, Moderate (4-6) Sodium Chloride 10 ml 10/10/19 10:00 10/11/19 11:28 Sodium Chloride Flush Syringe 10 Ml IV Not Given BID SHIVA Sodium Chloride 10 ml 10/09/19 23:55 Sodium Chloride Flush Syringe 10 Ml IV PRN PRN LINE FLUSH Nutrition/Malnutrition Assess - Dietary Evaluation Nutrition/Malnutrition Findings: Nutrition Notes Start: 10/10/19 10: 31 Freq: Status: Active Protocol: Document 10/10/19 10:31 CW (Rec: 10/10/19 10:46 CW [id number]) Co-Sign 10/10/19 10:31 LP Nutrition Notes 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 brother stated that he has not noticed weight fluctuation. UBW obtained from previous hospital visit on 09/09. 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 Pt has a good appetite, oral intake in hospital low due to dislike of meals provided. Pt states that he prefers hamburgers, green beans, corn, rice, and sandwiches. Percent of energy/protein needs met: 25/25 Burn Absent Trauma Absent GI Symptoms None Food Allergy No Cultural/Ethnic/Yarsani Belief prefers hamburgers, green beans, corn, rice, and sandwiches Current % PO Poor (25-49%) Minimum of two criteria No physical signs of malnutrition Is patient on ventilator? No Is Patient Ambulatory and/or Out of Bed No REE-([facility]-confined to bed) 1688.100 Calculation Used for Recommendations [facility] Additional Notes protein needs: 51 - 64 g pro ( 0.8 - 1 g por/ kgBW) fluid needs: 1 mL/kcal Nutrition Intervention Change Diet Order: continue regular diet Revisit per MD consult or patient Sign Off request:
[2019-10-11] MEDS: D5W/0.9% NACL 1,000 ML IV SCH (18:44)
[2019-10-12] MEDS: D5W/0.9% NACL 1,000 ML IV SCH ×3 (04:02→23:15)
[2019-10-12 05:30] LABS: BUN/Creatinine Ratio 15; Blood Urea Nitrogen 9 mg/dL (9-20); Calcium 8.4 mg/dL (8.4-10.2); Hemolysis Index 4
--- NOTE | 2019-10-12 07:18 | Progress Note ---
Assessment and Plan Assessment and plan: Patient is a 58-year-old man with history of cerebral palsy and BPH who has difficulty walking and recurrent urinary tract infections brought in by the brother for difficulty in urination and dysuria. Patient is cooperative. September 29 he was given Bactrim and completed coarse but not did not help so he was given Cipro on 10/06/19 without success. -Complicated UTI (urinary tract infection) failed outpatient oral therapy: Patient is initiated on IV fluids and IV Rocephin pending urine cultures -Urinary Retention: get Renal Ultrasound was normal most likely neurogenic bladder due to CP, continue miramontes (risk of recurrent infection due to miramontes explained and brother's reply was that he already has recurrent UTIs) and outpatient Urology consult -Hypokalemia: repleted and normal now -Cerebral palsy: supportive care DVT prophylaxis: Heparin 5000 every 12 and GI prophylaxis Disposition: continue inpatient, urine culture which is groing GNR await sensitivities since patient failed outpt therapy Still waiting on Urine Culture to identify the GNR. History Interval history: Patient was seen and examined. Follow-up on current diagnosis of Urinary retention, UTI and AMS, appears more alert and talkative. Overnight uneventful. Imaging, nursing note, chart, labs and old chart reviewed. Discussed with patient. The miramontes insertion helped relieved the pain Hospitalist Physical - Physical exam Narrative exam: GEN: thin frail awake HEENT: NCAT, EOMI, PERRL, OP Clear NECK: supple, no adenopathy, no thyromegaly, no JVD CVS/HEART: RRR, normal S1S2, pulses present bilaterally CHEST/LUNGS: CTA B, Symmetrical chest expansion, good air entry bilaterally GI/Abdomen: soft, NTND, good bowel sounds, no guarding or rebound /Bladder: no suprapubic tenderness, no CVA or paraspinal tenderness EXT/Skin: atrophic limbs MSK: FROM x 4 Neuro: CN 2-12 grossly intact, no new focal deficits Psych: calm - Constitutional Vitals: Temp Pulse Resp BP Pulse Ox 98.4 F 66 18 118/73 95 10/12/19 06:00 10/12/19 06:00 10/12/19 06:00 10/12/19 06:00 10/12/19 06:00 General appearance: Present: no acute distress. Absent: well-nourished Results - Labs CBC & Chem 7: 10/10/19 06:42 10/12/19 04:14 Labs: Laboratory Last Values WBC 8.8 K/mm3 (4.5-11.0) 10/10/19 06:42 RBC 4.01 M/mm3 (3.65-5.03) 10/10/19 06:42 Hgb 12.7 gm/dl (11.8-15.2) 10/10/19 06:42 Hct 37.1 % (35.5-45.6) 10/10/19 06:42 MCV 92 fl (84-94) 10/10/19 06:42 MCH 32 pg (28-32) 10/10/19 06:42 MCHC 34 % (32-34) 10/10/19 06:42 RDW 14.0 % (13.2-15.2) 10/10/19 06:42 Plt Count 278 K/mm3 (140-440) 10/10/19 06:42 Lymph % (Auto) 24.5 % (13.4-35.0) 10/10/19 06:42 [place] % (Auto) 12.3 % (0.0-7.3) H 10/10/19 06:42 Eos % (Auto) 1.0 % (0.0-4.3) 10/10/19 06:42 Baso % (Auto) 0.7 % (0.0-1.8) 10/10/19 06:42 Lymph # 2.2 K/mm3 (1.2-5.4) 10/10/19 06:42 [place] # 1.1 K/mm3 (0.0-0.8) H 10/10/19 06:42 Eos # 0.1 K/mm3 (0.0-0.4) 10/10/19 06:42 Baso # 0.1 K/mm3 (0.0-0.1) 10/10/19 06:42 Seg Neutrophils % 61.5 % (40.0-70.0) 10/10/19 06:42 Seg Neutrophils # 5.4 K/mm3 (1.8-7.7) 10/10/19 06:42 Sodium 140 mmol/L (137-145) 10/12/19 04:14 Potassium 3.8 mmol/L (3.6-5.0) 10/12/19 04:14 Chloride 104.9 mmol/L (98-107) 10/12/19 04:14 Carbon Dioxide 28 mmol/L (22-30) 10/12/19 04:14 Anion Gap 11 mmol/L 10/12/19 04:14 BUN 9 mg/dL (9-20) 10/12/19 04:14 Creatinine 0.6 mg/dL (0.8-1.5) L 10/12/19 04:14 Estimated GFR > 60 ml/min 10/12/19 04:14 BUN/Creatinine Ratio 15 % 10/12/19 04:14 Glucose 97 mg/dL (75-100) 10/12/19 04:14 Lactic Acid 2.20 mmol/L (0.7-2.0) H* 10/09/19 18:51 Calcium 8.4 mg/dL (8.4-10.2) 10/12/19 04:14 Total Bilirubin 0.60 mg/dL (0.1-1.2) 10/10/19 06:42 AST 25 units/L (5-40) 10/10/19 06:42 ALT 17 units/L (7-56) 10/10/19 06:42 Alkaline Phosphatase 45 units/L (35-129) 10/10/19 06:42 Total Protein 5.6 g/dL (6.3-8.2) L 10/10/19 06:42 Albumin 3.3 g/dL (3.9-5) L 10/10/19 06:42 Albumin/Globulin Ratio 1.4 % 10/10/19 06:42 Urine Color Jeanie (Yellow) 10/09/19 Unknown Urine Turbidity Slightly-cloudy (Clear) 10/09/19 Unknown Urine pH 6.0 (5.0-7.0) 10/09/19 Unknown Ur Specific [place] 1.011 (1.003-1.030) 10/09/19 Unknown Urine Protein 100 mg/dl mg/dL (Negative) 10/09/19 Unknown Urine Glucose (UA) Neg mg/dL (Negative) 10/09/19 Unknown Urine Ketones Neg mg/dL (Negative) 10/09/19 Unknown Urine Blood Mod (Negative) 10/09/19 Unknown Urine Nitrite Pos (Negative) 10/09/19 Unknown Urine Bilirubin Neg (Negative) 10/09/19 Unknown Urine Urobilinogen 4.0 mg/dL (<2.0) 10/09/19 Unknown Ur Leukocyte Esterase Mod (Negative) 10/09/19 Unknown Urine WBC (Auto) 85.0 /HPF (0.0-6.0) H 10/09/19 Unknown Urine RBC (Auto) 8.0 /HPF (0.0-6.0) 10/09/19 Unknown Urine Bacteria (Auto) 4+ /HPF (Negative) 10/09/19 Unknown Active Medications - Current Medications Current Medications: Generic Name Dose Route Start Last Admin Trade Name Freq PRN Reason Stop Dose Admin Acetaminophen 650 mg 10/09/19 23:55 Tylenol PO Q4H PRN Pain MILD(1-3)/Fever >100.5/LORENZO Aspirin 325 mg 10/09/19 17:00 10/11/19 10:57 Aspirin PO 325 mg QDAY SHIVA Administration Atorvastatin Calcium 10 mg 10/09/19 22:00 10/11/19 22:11 Atorvastatin PO 10 mg QHS SHIVA Administration Citalopram Hydrobromide 40 mg 10/09/19 17:00 10/11/19 10:56 Celexa PO 40 mg QDAY SHIVA Administration Famotidine 20 mg 10/10/19 10:00 10/11/19 22:11 Pepcid IV 20 mg BID SHIVA Administration Heparin Sodium (Porcine) 5,000 unit 10/10/19 10:00 10/11/19 22:12 Heparin SUB-Q 5,000 unit Q12HR SHIAV Administration Hydromorphone HCl 0.5 mg 10/09/19 23:55 Dilaudid IV Q3H PRN Pain , Severe (7-10) Dextrose/Sodium Chloride 1,000 mls @ 100 mls/hr 10/09/19 23:45 10/12/19 04:02 D5ns IV 100 mls/hr DIRECT SHIVA Administration Ceftriaxone Sodium 2 gm in 100 mls @ 200 mls/hr 10/10/19 10:00 10/11/19 10:57 Rocephin/Ns 2 Gm/100 Ml IV 200 mls/hr Q24HR SHIVA Administration Protocol Ondansetron HCl 4 mg 10/09/19 23:55 Zofran IV Q8H PRN Nausea And Vomiting Oxycodone/Acetaminophen 1 tab 10/09/19 23:55 Percocet 5/325 PO Q6H PRN Pain, Moderate (4-6) Sodium Chloride 10 ml 10/10/19 10:00 10/11/19 22:12 Sodium Chloride Flush Syringe 10 Ml IV 10 ml BID SHIVA Administration Sodium Chloride 10 ml 10/09/19 23:55 Sodium Chloride Flush Syringe 10 Ml IV PRN PRN LINE FLUSH Nutrition/Malnutrition Assess - Dietary Evaluation Nutrition/Malnutrition Findings: Nutrition Notes Start: 10/10/19 10:31 Freq: Status: Active Protocol: Document 10/10/19 10:31 CW (Rec: 10/10/19 10:46 CW [id number]) Co-Sign 10/10/19 10:31 LP Nutrition Notes 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 brother stated that he has not noticed weight fluctuation. UBW obtained from previous hospital visit on 09/09. 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 Pt has a good appetite, oral intake in hospital low due to dislike of meals provided. Pt states that he prefers hamburgers, green beans, corn, rice, and sandwiches. Percent of energy/protein needs met: 25/25 Burn Absent Trauma Absent GI Symptoms None Food Allergy No Cultural/Ethnic/Jewish Belief prefers hamburgers, green beans, corn, rice, and sandwiches Current % PO Poor (25-49%) Minimum of two criteria No physical signs of malnutrition Is patient on ventilator? No Is Patient Ambulatory and/or Out of Bed No REE-([facility]-confined to bed) 1688.100 Calculation Used for Recommendations [facility] Additional Notes protein needs: 51 - 64 g pro ( 0.8 - 1 g por/ kgBW) fluid needs: 1 mL/kcal Nutrition Intervention Change Diet Order: continue regular diet Revisit per MD consult or patient Sign Off request:
[2019-10-12] MEDS: cefTRIAXone/NS 2 GM/100 ML 2 GM/100 ML BAG IV SCH (09:03)
[2019-10-12] MEDS: ASPIRIN 325 MG TAB PO SCH (09:06)
[2019-10-12] MEDS: CITALOPRAM 20 MG TAB PO SCH (09:06)
[2019-10-12] MEDS: FAMOTIDINE 20 MG/2 ML INJ IV SCH ×2 (09:06→23:11)
[2019-10-12] MEDS: HEPARIN 5,000 UNIT/1 ML VIAL SUB-Q SCH ×2 (09:08→23:12)
[2019-10-13] MEDS: cefTRIAXone/NS 2 GM/100 ML 2 GM/100 ML BAG IV SCH (09:41)
[2019-10-13] MEDS: HEPARIN 5,000 UNIT/1 ML VIAL SUB-Q SCH (09:42)
[2019-10-13] MEDS: CITALOPRAM 20 MG TAB PO SCH (09:42)
[2019-10-13] MEDS: ASPIRIN 325 MG TAB PO SCH (09:42)
[2019-10-13] MEDS: FAMOTIDINE 20 MG/2 ML INJ IV SCH (09:42)
[2019-10-13] MEDS: D5W/0.9% NACL 1,000 ML IV SCH (09:53)
--- NOTE | 2019-10-13 09:55 | Progress Note ---
Assessment and Plan Assessment and plan: Patient is a 58-year-old man with history of cerebral palsy and BPH who has difficulty walking and recurrent urinary tract infections brought in by the brother for difficulty in urination and dysuria. Patient is cooperative. September 29 he was given Bactrim and completed coarse but not did not help so he was given Cipro on 10/06/19 without success. -Complicated UTI (urinary tract infection) failed outpatient oral therapy: Patient is initiated on IV fluids and IV Rocephin pending urine cultures -Urinary Retention: get Renal Ultrasound was normal most likely neurogenic bladder due to CP, continue miramontes (risk of recurrent infection due to miramontes explained and brother's reply was that he already has recurrent UTIs) and outpatient Urology consult -Hypokalemia: repleted and normal now -Cerebral palsy: supportive care DVT prophylaxis: Heparin 5000 every 12 and GI prophylaxis Disposition: continue inpatient, urine culture which is growing MDR E. coli to most if not all oral medications, consulted ID, await their recommendation d/w twin brotherJosé Luis History Interval history: Patient was seen and examined. Follow-up on current diagnosis of Urinary retention, UTI and AMS, appears more alert and talkative. Overnight uneventful. Imaging, nursing note, chart, labs and old chart reviewed. Discussed with patient. The miramontes insertion helped relieved the pain Hospitalist Physical - Physical exam Narrative exam: GEN: thin frail awake HEENT: NCAT, EOMI, PERRL, OP Clear NECK: supple, no adenopathy, no thyromegaly, no JVD CVS/HEART: RRR, normal S1S2, pulses present bilaterally CHEST/LUNGS: CTA B, Symmetrical chest expansion, good air entry bilaterally GI/Abdomen: soft, NTND, good bowel sounds, no guarding or rebound /Bladder: no suprapubic tenderness, no CVA or paraspinal tenderness EXT/Skin: atrophic limbs MSK: FROM x 4 Neuro: CN 2-12 grossly intact, no new focal deficits Psych: calm - Constitutional Vitals: Temp Pulse Resp BP Pulse Ox 98.1 F 64 16 118/65 93 10/13/19 04:23 10/13/19 04:23 10/13/19 04:23 10/13/19 04:23 10/13/19 04:23 General appearance: Present: no acute distress. Absent: well-nourished Results - Labs CBC & Chem 7: 10/10/19 06:42 10/12/19 04:14 Labs: Laboratory Last Values WBC 8.8 K/mm3 (4.5-11.0) 10/10/19 06:42 RBC 4.01 M/mm3 (3.65-5.03) 10/10/19 06:42 Hgb 12.7 gm/dl (11.8-15.2) 10/10/19 06:42 Hct 37.1 % (35.5-45.6) 10/10/19 06:42 MCV 92 fl (84-94) 10/10/19 06:42 MCH 32 pg (28-32) 10/10/19 06:42 MCHC 34 % (32-34) 10/10/19 06:42 RDW 14.0 % (13.2-15.2) 10/10/19 06:42 Plt Count 278 K/mm3 (140-440) 10/10/19 06:42 Lymph % (Auto) 24.5 % (13.4-35.0) 10/10/19 06:42 [place] % (Auto) 12.3 % (0.0-7.3) H 10/10/19 06:42 Eos % (Auto) 1.0 % (0.0-4.3) 10/10/19 06:42 Baso % (Auto) 0.7 % (0.0-1.8) 10/10/19 06:42 Lymph # 2.2 K/mm3 (1.2-5.4) 10/10/19 06:42 [place] # 1.1 K/mm3 (0.0-0.8) H 10/10/19 06:42 Eos # 0.1 K/mm3 (0.0-0.4) 10/10/19 06:42 Baso # 0.1 K/mm3 (0.0-0.1) 10/10/19 06:42 Seg Neutrophils % 61.5 % (40.0-70.0) 10/10/19 06:42 Seg Neutrophils # 5.4 K/mm3 (1.8-7.7) 10/10/19 06:42 Sodium 140 mmol/L (137-145) 10/12/19 04:14 Potassium 3.8 mmol/L (3.6-5.0) 10/12/19 04:14 Chloride 104.9 mmol/L (98-107) 10/12/19 04:14 Carbon Dioxide 28 mmol/L (22-30) 10/12/19 04:14 Anion Gap 11 mmol/L 10/12/19 04:14 BUN 9 mg/dL (9-20) 10/12/19 04:14 Creatinine 0.6 mg/dL (0.8-1.5) L 10/12/19 04:14 Estimated GFR > 60 ml/min 10/12/19 04:14 BUN/Creatinine Ratio 15 % 10/12/19 04:14 Glucose 97 mg/dL (75-100) 10/12/19 04:14 Lactic Acid 2.20 mmol/L (0.7-2.0) H* 10/09/19 18:51 Calcium 8.4 mg/dL (8.4-10.2) 10/12/19 04:14 Total Bilirubin 0.60 mg/dL (0.1-1.2) 10/10/19 06:42 AST 25 units/L (5-40) 10/10/19 06:42 ALT 17 units/L (7-56) 10/10/19 06:42 Alkaline Phosphatase 45 units/L (35-129) 10/10/19 06:42 Total Protein 5.6 g/dL (6.3-8.2) L 10/10/19 06:42 Albumin 3.3 g/dL (3.9-5) L 10/10/19 06:42 Albumin/Globulin Ratio 1.4 % 10/10/19 06:42 Urine Color Jeanie (Yellow) 10/09/19 Unknown Urine Turbidity Slightly-cloudy (Clear) 10/09/19 Unknown Urine pH 6.0 (5.0-7.0) 10/09/19 Unknown Ur Specific Boyce 1.011 (1.003-1.030) 10/09/19 Unknown Urine Protein 100 mg/dl mg/dL (Negative) 10/09/19 Unknown Urine Glucose (UA) Neg mg/dL (Negative) 10/09/19 Unknown Urine Ketones Neg mg/dL (Negative) 10/09/19 Unknown Urine Blood Mod (Negative) 10/09/19 Unknown Urine Nitrite Pos (Negative) 10/09/19 Unknown Urine Bilirubin Neg (Negative) 10/09/19 Unknown Urine Urobilinogen 4.0 mg/dL (<2.0) 10/09/19 Unknown Ur Leukocyte Esterase Mod (Negative) 10/09/19 Unknown Urine WBC (Auto) 85.0 /HPF (0.0-6.0) H 10/09/19 Unknown Urine RBC (Auto) 8.0 /HPF (0.0-6.0) 10/09/19 Unknown Urine Bacteria (Auto) 4+ /HPF (Negative) 10/09/19 Unknown Active Medications - Current Medications Current Medications: Generic Name Dose Route Start Last Admin Trade Name Freq PRN Reason Stop Dose Admin Acetaminophen 650 mg 10/09/19 23:55 Tylenol PO Q4H PRN Pain MILD(1-3)/Fever >100.5/LORENZO Aspirin 325 mg 10/09/19 17:00 10/12/19 09:06 Aspirin PO 325 mg QDAY SHIVA Administration Atorvastatin Calcium 10 mg 10/09/19 22:00 10/12/19 23:11 Atorvastatin PO 10 mg QHS SHIVA Administration Citalopram Hydrobromide 40 mg 10/09/19 17:00 10/12/19 09:06 Celexa PO 40 mg QDAY SHIVA Administration Famotidine 20 mg 10/10/19 10:00 10/12/19 23:11 Pepcid IV 20 mg BID SHIVA Administration Heparin Sodium (Porcine) 5,000 unit 10/10/19 10:00 10/12/19 23:12 Heparin SUB-Q 5,000 unit Q12HR SHIVA Administration Hydromorphone HCl 0.5 mg 10/09/19 23:55 Dilaudid IV Q3H PRN Pain , Severe (7-10) Dextrose/Sodium Chloride 1,000 mls @ 100 mls/hr 10/09/19 23:45 10/12/19 23:15 D5ns IV 100 mls/hr DIRECT SHIVA Administration Ceftriaxone Sodium 2 gm in 100 mls @ 200 mls/hr 10/10/19 10:00 10/12/19 09:03 Rocephin/Ns 2 Gm/100 Ml IV 10/16/19 10:29 200 mls/hr Q24HR SHIVA Administration Protocol Ondansetron HCl 4 mg 10/09/19 23:55 Zofran IV Q8H PRN Nausea And Vomiting Oxycodone/Acetaminophen 1 tab 10/09/19 23:55 Percocet 5/325 PO Q6H PRN Pain, Moderate (4-6) Sodium Chloride 10 ml 10/10/19 10:00 10/12/19 23:11 Sodium Chloride Flush Syringe 10 Ml IV 10 ml BID SHIVA Administration Sodium Chloride 10 ml 10/09/19 23:55 Sodium Chloride Flush Syringe 10 Ml IV PRN PRN LINE FLUSH Nutrition/Malnutrition Assess - Dietary Evaluation Nutrition/Malnutrition Findings: Nutrition Notes Start: 10/10/19 10:31 Freq: Status: Active Protocol: Document 10/10/19 10:31 CW (Rec: 10/10/19 10:46 CW [id number]) Co-Sign 10/10/19 10:31 LP Nutrition Notes Need for Assessment generated from: transition advisor Initial or Follow up Brief Note Other Pertinent Diagnosis hypokalemia, Cerebral Palsy, UTI, DVT prophylaxis Current Diet regular diet Labs/Tests reviewed Pertinent Medications ceftriaxene sodium, dilaudid Height 5 ft 6 in Weight 64 kg Usual Body Weight 61.23 kg Fitzpatrick Body Weight (kg) 64.54 BMI 22.7 Intake Prior to Admission Excellent Weight change and time frame 3 lb weight gain in 4 months Weight Status Appropriate Subjective/Other Information Pt's. brother stated that he has not noticed weight fluctuation. UBW obtained from previous hospital visit on 09/09. 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 Pt has a good appetite, oral intake in hospital low due to dislike of meals provided. Pt states that he prefers hamburgers, green beans, corn, rice, and sandwiches. Percent of energy/protein needs met: 25/25 Burn Absent Trauma Absent GI Symptoms None Food Allergy No Cultural/Ethnic/Spiritism Belief prefers hamburgers, green beans, corn, rice, and sandwiches Current % PO Poor (25-49%) Minimum of two criteria No physical signs of malnutrition Is patient on ventilator? No Is Patient Ambulatory and/or Out of Bed No [facility] [phone] Calculation Used for Recommendations [facility] Additional Notes protein needs: 51 - 64 g pro ( 0.8 - 1 g por/ kgBW) fluid needs: 1 mL/kcal Nutrition Intervention Change Diet Order: continue regular diet Revisit per MD consult or patient Sign Off request:
--- NOTE | 2019-10-13 10:00 | Consultation ---
History of Present Illness - Reason for Consult Consult date: 10/13/19 - History of Present Illness 58 yo M PMHx cerebral palsy and recurrent UTI admitted with presumed UTI. His brother brought him the hospital with complaints of difficulty voiding and dysuria. Prior to coming to the hospital he was given PO Cipro and Bactrim, however that did not alleviate his symptoms. Afebrile since admission with a normal white count. Cultures with E coli that is resistant to several antibiotics. Currently receiving ceftriaxone. Imaging personally reviewed: Renal US: normal. Review of systems: Bold if positive; otherwise negative GENERAL: fever, chills, weight loss, fatigue, night sweats EYES: blurry vision, eye pain HENT: headache, hearing loss, sore throat, dysphagia, sinus pain CARDIO: chest pain, palpitations, orthopnea PULM: shortness of breath, wheezing, cough, sputum, hemoptysis GI: nausea, vomiting, diarrhea, abdominal pain, blood in stool : urinary frequency, urgency, dysuria, urethral discharge MSK: joint pain, back pain, swelling SKIN: rash, redness HEME: easy bruising, bleeding Past History Past Medical History: other (See HPI) Past Surgical History: No surgical history Social history: lives with family Family history: hypertension Medications and Allergies Allergies Allergy/AdvReac Type Severity Reaction Status Date / Time No Known Allergies Allergy Unverified 07/02/18 12:01 Home Medications Medication Instructions Recorded Confirmed Last Taken Type Aspirin 325 mg PO QDAY 10/09/19 10/09/19 Unknown History AtorvaSTATin 10 mg PO QHS 10/09/19 10/09/19 Unknown History Citalopram [Celexa] 40 mg PO QDAY 10/09/19 10/09/19 Unknown History Acetaminophen [Acetaminophen TAB] 650 mg PO Q4H PRN #15 tablet 10/13/19 Unknown Rx Cefdinir 300 mg PO BID #8 capsule 10/13/19 Unknown Rx Active Meds: Active Medications Acetaminophen (Tylenol) 650 mg PO Q4H PRN PRN Reason: Pain MILD(1-3)/Fever >100.5/LORENZO Aspirin (Aspirin) 325 mg PO QDAY [facility] Last Admin: 10/12/19 09:06 Dose: 325 mg Documented by: Atorvastatin Calcium (Atorvastatin) 10 mg PO QHS [facility] Last Admin: 10/12/19 23:11 Dose: 10 mg Documented by: Citalopram Hydrobromide (Celexa) 40 mg PO QDAY [facility] Last Admin: 10/12/19 09:06 Dose: 40 mg Documented by: Famotidine (Pepcid) 20 mg IV BID [facility] Last Admin: 10/12/19 23:11 Dose: 20 mg Documented by: Heparin Sodium (Porcine) (Heparin) 5,000 unit SUB-Q Q12HR [facility] Last Admin: 10/12/19 23:12 Dose: 5,000 unit Documented by: Hydromorphone HCl (Dilaudid) 0.5 mg IV Q3H PRN PRN Reason: Pain , Severe (7-10) Dextrose/Sodium Chloride (D5ns) 1,000 mls @ 100 mls/hr IV DIRECT [facility] Last Admin: 10/12/19 23:15 Dose: 100 mls/hr Documented by: Ceftriaxone Sodium (Rocephin/Ns 2 Gm/100 Ml) 2 gm in 100 mls @ 200 mls/hr IV Q24HR [facility]; Protocol Stop: 10/16/19 10:29 Last Admin: 10/12/19 09:03 Dose: 200 mls/hr Documented by: Ondansetron HCl (Zofran) 4 mg IV Q8H PRN PRN Reason: Nausea And Vomiting Oxycodone/Acetaminophen (Percocet 5/325) 1 tab PO Q6H PRN PRN Reason: Pain, Moderate (4-6) Sodium Chloride (Sodium Chloride Flush Syringe 10 Ml) 10 ml IV BID [facility] Last Admin: 10/12/19 23:11 Dose: 10 ml Documented by: Sodium Chloride (Sodium Chloride Flush Syringe 10 Ml) 10 ml IV PRN PRN PRN Reason: LINE FLUSH Physical Examination - Physical Exam Narrative exam: General Normal appearance, well developed, no acute distress Eyes - PERRLA, EOM intact ENT - Moist mucous membranes, no lymphadenopathy Neck - No noticeable or palpable swelling, redness or rash around throat or on face Lymph Nodes - No lymphadenopathy Cardiovascular - RRR no m/r/g, no JVD, no carotid bruits Lungs - Clear to auscultation, no use of accessory muscles, no crackles or wheezes. Skin - No rashes, skin warm and dry, no erythematous areas Abdomen - Normal bowel sounds, abdomen soft and nontender Extremities - No edema, cyanosis or clubbing Musculoskeletal - 5/5 strength UE, LE 2/5, normal range of motion, no swollen or erythematous joints. Neurological Alert and oriented x 3, CN 2-12 grossly intact. - Constitutional Vitals: Vital Signs Temp Pulse Resp BP Pulse Ox 98.1 F 64 16 118/65 93 10/13/19 04:23 10/13/19 04:23 10/13/19 04:23 10/13/19 04:23 10/13/19 04:23 Temperature -Last 24 Hours Temperature 98.1 F Temperature 98.1 F Temperature 97.9 F Temperature 97.9 F Results - Labs CBC & Chem 7: 10/10/19 06:42 10/12/19 04:14 Assessment and Plan Cultures Blood culture 10/09/19 no growth to date Urine culture 10/09/19 E coli, R to fluoroquinolones Assessment: 58 yo M pMHx cerebral palsy, recurrent UTI admitted with UTI 1. Recurrent UTI - E coli is resistant to several antibiotics, and this will likely continue to get worse over time. Continue ceftriaxone inpatient, on discharge send home with PO cefdinir. Complete 7 days of therapy. 2. Cerebral palsy - probably some level of neurogenic bladder, may benefit from outpatient urology. Recs: - continue ceftriaxone inpatient - On discharge please send home with cefdinir 300mg q12h to complete 7 days of therapy. Stop date: 10/17/19 - patient should consider outpatient urology consultation. Thank you for the consult, we will continue to follow. [facility] ([facility]) M: [phone] O: [phone] F: [phone]
--- NOTE | 2019-10-13 13:29 | Discharge Summary ---
Providers - Providers Date of Admission: 10/10/19 10:42 Date of discharge: 10/13/19 Attending physician: MYRA LAURENT 10/12/19 10:36 Consult to Physician [CONS] Routine Comment: Consulting Provider: ISRA AMOS Physician Instructions: Reason For Exam: MDR E.coli, abx management Primary care physician: MISSY SUAZO Hospitalization Condition: Stable Hospital course: Patient is a 58-year-old man with history of cerebral palsy and BPH who has difficulty walking (he mostly crawls) and recurrent urinary tract inf ections brought in by the brother for difficulty in urination and dysuria. Patient is cooperative. September 29, 2019, he was given Bactrim and completed coarse but not did not help so he was given Cipro on 10/06/19 without success. Discharge Diagnoses: -Complicated UTI (urinary tract infection) failed outpatient oral therapy: Patient is initiated on IV fluids and IV Rocephin pending urine cultures -Urinary Retention: get Renal Ultrasound was normal most likely neurogenic bladder due to CP, continue miramontes (risk of recurrent infection due to miramontes explained and brother's reply was that he already has recurrent UTIs) and outpatient Urology consult -Hypokalemia: repleted and normal now -Severe Malnutrition, poa: health counselor on dietary supplements -Cerebral palsy: supportive care DVT prophylaxis: Heparin 5000 every 12 and GI prophylaxis Disposition: home with Omnicef 3/7 days Disposition: DC-01 TO HOME OR SELFCARE Time spent for discharge: 36 minutes Core Measure Documentation - Palliative Care Palliative Care/ Comfort Measures: Not Applicable - Core Measures Any of the following diagnoses?: none - VTE Discharge Requirements Deep Vein Thrombosis/Pulmonary Embolism Present on Admission: No Has pt received <5 days of overlap therapy or INR<2.0: No Anticoagulant overlap therapy prescribed at discharge: No Contraindication No Overlap Therapy order at DC: Not Indicated Exam - Physical Exam Narrative exam: GEN: thin frail awake HEENT: NCAT, EOMI, PERRL, OP Clear NECK: supple, no adenopathy, no thyromegaly, no JVD CVS/HEART: RRR, normal S1S2, pulses present bilaterally CHEST/LUNGS: CTA B, Symmetrical chest expansion, good air entry bilaterally GI/Abdomen: soft, NTND, good bowel sounds, no guarding or rebound /Bladder: no suprapubic tenderness, no CVA or paraspinal tenderness EXT/Skin: atrophic limbs MSK: FROM x 4 Neuro: CN 2-12 grossly intact, no new focal deficits Psych: calm - Constitutional Vitals: Temp Pulse Resp BP Pulse Ox 98.1 F 64 16 118/65 93 10/13/19 04:23 10/13/19 04:23 10/13/19 04:23 10/13/19 04:23 10/13/19 04:23 Plan Activity: other (no strenous activity) Diet: regular Additional Instructions: See Urologist, Dr. Nettles (aka Dr. Bergman) and possible remove miramontes then. Follow up with: PRIMARY CARE, [Referring] - 3-5 Days DALLAS NETTLES MD [Staff Physician] - 7 Days Prescriptions: Cefdinir 300 mg PO BID #8 capsule
[2019-10-13 13:58] VITALS: BP 125/70
== END 2019-10-13 17:45 | disposition home health service (06) | DRG 689 ==
LOC: ED 08:16 → 3A 12:01 → OBSVTOIN 10-10 10:42
PROVIDERS: ADMIT Internal Medicine; ATTEND Internal Medicine
DX: N39.0 Urinary tract infection, site not specified (principal); E43 Unspecified severe protein-calorie malnutrition; Z68.1 Body mass index [BMI] 19.9 or less, adult; G80.1 Spastic diplegic cerebral palsy; E87.6 Hypokalemia; G40.909 Epilepsy, unspecified, not intractable, without status epilepticus; N40.1 Benign prostatic hyperplasia with lower urinary tract symptoms; R33.8 Other retention of urine; F32.9 Major depressive disorder, single episode, unspecified; Z82.49 Family history of ischemic heart disease and other diseases of the circulatory system; Z79.82 Long term (current) use of aspirin; Z79.899 Other long term (current) drug therapy; Z86.73 Personal history of transient ischemic attack (TIA), and cerebral infarction without residual deficits; Z71.3 Dietary counseling and surveillance; B96.20 Unspecified Escherichia coli [E. coli] as the cause of diseases classified elsewhere
CPT/HCPCS: 36415; 76770; 80048; 80053; 81001; 82140; 85025; 87040; 87076; 87086; 87186; 96365; 96366; G0378; A9270-GY; J0696; J1644; J7030; J7042

== ENCOUNTER 2019-12-08 07:52 | Observation (INO) | payer MEDICARE ==
--- NOTE | 2019-12-05 11:11 | Anesthesia Consultation ---
Anesthesia Consult and Med Hx Date of service: 12/05/19 - Airway Anesthetic Teeth Evaluation: Partials ROM Head & Neck: Adequate Mental/Hyoid Distance: Adequate Mallampati Class: Class II - Pulmonary Exam CTA: Yes - Cardiac Exam Cardiac Exam: RRR - Pre-Operative Health Status ASA Pre-Surgery Classification: ASA3 Proposed Anesthetic Plan: General - Pulmonary Hx Smoking: No Hx Asthma: No COPD: No Hx Sleep Apnea: No (DENISE PRE SCREEN LOW RISK.) - Cardiovascular System Hx Hypertension: No (HLD) - Central Nervous System Hx Seizures: Yes (X 1 CHILD- NO MEDS ADULT) CVA: Yes (WITH LEFT SIDED WEAKNESS) - Endocrine Hx End Stage Renal Disease: No - Other Systems Hx Cancer: No
[2019-12-05 11:21] LABS: Basophils # (Auto) 0.1 K/mm3 (0.0-0.1); Basophils % (Auto) 0.6 % (0.0-1.8); Eosinophils # (Auto) 0.1 K/mm3 (0.0-0.4); Hematocrit 47.3 % (35.5-45.6); Hemoglobin 15.9 gm/dl (11.8-15.2); Lymphocytes # (Auto) 2.2 K/mm3 (1.2-5.4); Lymphocytes % (Auto) 25.6 % (13.4-35.0); Mean Corpuscular HGB Conc 34 % (32-34); Mean Corpuscular Volume 90 fl (84-94); Monocytes # (Auto) 0.7 K/mm3 (0.0-0.8); Monocytes % (Auto) 7.8 % (0.0-7.3); Platelet Count 304 K/mm3 (140-440); Red Blood Count 5.23 M/mm3 (3.65-5.03); Red Cell Distribution Width 14.1 % (13.2-15.2)
[2019-12-05 11:43] LABS: Alanine Aminotransferase 12 units/L (7-56); Albumin 4.1 g/dL (3.9-5); BUN/Creatinine Ratio 27; Blood Urea Nitrogen 16 mg/dL (9-20); Calcium 9.2 mg/dL (8.4-10.2); Hemolysis Index 31
[2019-12-08] MEDS ORDERED: fentaNYL 100 MCG/2 ML INJ IV PRN (08:38)
--- NOTE | 2019-12-08 08:38 | Anesthesia Day of Surgery ---
Anesthesia Day of Surgery - Day of Surgery Patient Examined: Yes Patient H&P Reviewed: Yes Patient is NPO: Yes
[2019-12-08] MEDS ORDERED: SODIUM CHLORIDE 0.9% 1000 ML 1,000 ML IV SCH (08:45)
[2019-12-08] MEDS ORDERED: ceFAZolin/Water 2 GM/20 ML 2 GM/20 ML SYRINGE IV ONE (09:10)
[2019-12-08] MEDS ORDERED: propofoL 200 MG/20 ML VIAL IV ONE (09:17)
[2019-12-08] MEDS ORDERED: HYDROmorphone 1 MG/1 ML INJ ONE (09:17)
[2019-12-08] MEDS ORDERED: LIDOCAINE MPF (2%) 20 MG/1 ML VIAL 5 ML ONE (09:17)
[2019-12-08] MEDS ORDERED: ePHEDrine SULFATE 50 MG/1 ML INJ ONE (09:57)
[2019-12-08] MEDS ORDERED: ceFAZolin/STERILE WATER 2 GM/20 ML SYRINGE IV NR (10:00)
[2019-12-08] MEDS ORDERED: ONDANSETRON 4 MG/2 ML INJ ONE (10:34)
--- NOTE | 2019-12-08 10:55 | Post Operative Note ---
Date of procedure: 12/08/19 Pre-op diagnosis: aur Post-op diagnosis: same Findings: aur Procedure: cysto turp spt Surgeon: DALLAS NETTLES Estimated blood loss: minimal Pathology: list (prostate) Specimen disposition: to lab Condition: stable Disposition: PACU
[2019-12-08] MEDS ORDERED: oxyCODONE /ACETAMINOPHEN 5-325MG TAB PO PRN (10:56)
[2019-12-08] MEDS ORDERED: ZOLPIDEM 5 MG TAB PO PRN (10:56)
[2019-12-08] MEDS ORDERED: ACETAMINOPHEN 325 MG TAB PO PRN (10:56)
[2019-12-08] MEDS ORDERED: ONDANSETRON 4 MG/2 ML INJ IV PRN (10:56)
--- NOTE | 2019-12-08 11:24 | Operative Report ---
PREOPERATIVE DIAGNOSES: Urinary retention, elevated bladder neck, bladder outlet obstruction, bladder stone. POSTOPERATIVE DIAGNOSES: Urinary retention, elevated bladder neck, bladder outlet obstruction, bladder stone. PROCEDURE: Cystoscopy, resection of the prostate, and insertion of suprapubic tube with Lowsley. SURGEON: Dr. Rodriguez ANESTHESIA: General. FINDINGS: This is a gentleman with severe neurological impairment from cerebral palsy. He continues to have retention of urine, now presents for treatment. DESCRIPTION OF PROCEDURE: The patient brought to the operating room and placed on the operating table. Following induction of anesthesia, placed in lithotomy position, prepped and draped in usual sterile fashion. The bladder neck was partially opened. The bladder was 1-2+ trabeculated. Stones were evacuated out with the BUKA evacuator. At this point, the resectoscope was inserted. We resected the bladder neck circumferentially. It was wide open. Using the Lowsley, we easily placed an 18-Russian Jett and secured that with a silk. The patient tolerated the procedure well. Minimal bleeding, brought to recovery in stable condition. Family was not in the waiting area. JOB# [id number] MATY/LORA
--- NOTE | 2019-12-08 12:10 | XRay Report ---
ABDOMEN 1 VIEW(S) INDICATION / CLINICAL INFORMATION: URINE RETENTION. COMPARISON: None available. FINDINGS: TUBES / LINES: None. BOWEL GAS PATTERN: No significant abnormality. FREE AIR / EXTRALUMINAL GAS: None seen. ADDITIONAL FINDINGS: No significant additional findings. IMPRESSION: No significant abnormality. Signer Name: Jabari Platt Jr, MD Signed: 12/08/2019 12:05 PM Workstation Name: [id number]
[2019-12-08] MEDS ORDERED: D5W/0.45% NACL/KCL 20 MEQ 20 MEQ/1,000 ML BAG IV ONE (15:00)
[2019-12-08] MEDS ORDERED: SODIUM CHLORIDE IRRI 2000 ML 6,000 ML ONE (15:00)
[2019-12-08] MEDS: D5W/0.45% NACL/KCL 20 MEQ 20 MEQ/1,000 ML BAG IV SCH ×2 (15:05→23:45)
[2019-12-08] MEDS ORDERED: SODIUM CHLORIDE IRRI 1000 ML 1,000 ML IR ONE (19:09)
[2019-12-08] MEDS: ceFAZolin/NS 1 GM/50 ML 1 GM/50 ML BAG IV SCH (19:37)
[2019-12-08] MEDS: SODIUM CHLORIDE 0.9% IRRIG SOLN 2000 ML IR SCH ×2 (19:52→23:45)
[2019-12-09] MEDS: SODIUM CHLORIDE 0.9% IRRIG SOLN 2000 ML IR SCH ×3 (01:50→05:25)
[2019-12-09] MEDS: ceFAZolin/NS 1 GM/50 ML 1 GM/50 ML BAG IV SCH (03:55)
--- NOTE | 2019-12-09 09:32 | Progress Note ---
Assessment and Plan urine clear tov cath out spt plugged Subjective Date of service: 12/09/19 Principal diagnosis: aur Objective - Constitutional Vitals: Vital Signs - 12hr 12/09/19 12/09/19 12/09/19 00:38 04:11 04:12 Temperature 98.4 F 98.1 F Pulse Rate 67 57 L Respiratory 18 17 18 Rate Blood Pressure 106/60 118/63 O2 Sat by Pulse 95 97 97 Oximetry 12/09/19 07:58 Temperature 97.9 F Pulse Rate 65 Respiratory 18 Rate Blood Pressure 128/75 O2 Sat by Pulse 94 Oximetry - Labs CBC & Chem 7: 12/05/19 10:25 12/05/19 10:25 Medications & Allergies - Medications Allergies/Adverse Reactions: Allergies No Known Allergies Allergy (Verified 12/08/19 08:46) Home Medications: Home Medications Medication Instructions Recorded Confirmed Last Taken Type Aspirin 81 mg PO QDAY 10/09/19 12/08/19 12/01/19 09:00 History AtorvaSTATin 10 mg PO QHS 10/09/19 12/08/19 12/07/19 20:00 History Citalopram [Celexa] 40 mg PO QDAY 10/09/19 12/08/19 12/07/19 20:00 History Acetaminophen [Acetaminophen TAB] 650 mg PO Q4H PRN #15 tablet 10/13/19 12/01/19 Unknown Rx Active Medications: Generic Name Dose Route Start Last Admin Trade Name Freq PRN Reason Stop Dose Admin Acetaminophen 650 mg 12/08/19 10:56 Tylenol PO Q4H PRN Pain, Mild (1-3)/Fever > 100.5 Fentanyl 50 mcg 12/08/19 08:38 Sublimaze IV Q5MIN PRN Pain , Severe (7-10) Sodium Chloride 1,000 mls @ 42 mls/hr 12/08/19 08:45 12/08/19 09:10 Nacl 0.9% 1000 Ml IV 42 mls/hr DIRECT SHIVA Administration Potassium Chloride/Dextrose/Sod Cl 20 meq in 1,000 mls @ 125 mls/hr 12/08/19 11:00 12/08/19 23:45 D5w/0.45% Nacl/Kcl 20 Meq IV 125 mls/hr DIRECT SHIVA Administration Ondansetron HCl 4 mg 12/08/19 10:56 Zofran IV Q8H PRN Nausea And Vomiting Oxycodone/Acetaminophen 2 tab 12/08/19 10:56 Percocet 5/325 PO Q6H PRN Pain, Moderate (4-6) Sodium Chloride 2,000 ml 12/08/19 18:00 12/09/19 05:25 Nacl 0.9% IR 2,000 ml DIRECT SHIVA Administration Zolpidem Tartrate 5 mg 12/08/19 10:56 Ambien PO QHS PRN Sleep
--- NOTE | 2019-12-09 09:32 | Progress Note ---
Subjective Date of service: 12/09/19 Principal diagnosis: aur Objective - Constitutional Vitals: Vital Signs - 12hr 12/09/19 12/09/19 12/09/19 00:38 04:11 04:12 Temperature 98.4 F 98.1 F Pulse Rate 67 57 L Respiratory 18 17 18 Rate Blood Pressure 106/60 118/63 O2 Sat by Pulse 95 97 97 Oximetry 12/09/19 07:58 Temperature 97.9 F Pulse Rate 65 Respiratory 18 Rate Blood Pressure 128/75 O2 Sat by Pulse 94 Oximetry General appearance: Present: disheveled - Neck Neck: supple - Respiratory Respiratory effort: normal Extremities: no ischemia - Gastrointestinal General gastrointestinal: Present: soft, non-tender - Labs CBC & Chem 7: 12/05/19 10:25 12/05/19 10:25 Medications & Allergies - Medications Allergies/Adverse Reactions: Allergies No Known Allergies Allergy (Verified 12/08/19 08:46) Home Medications: Home Medications Medication Instructions Recorded Confirmed Last Taken Type Aspirin 81 mg PO QDAY 10/09/19 12/08/19 12/01/19 09:00 History AtorvaSTATin 10 mg PO QHS 10/09/19 12/08/19 12/07/19 20:00 History Citalopram [Celexa] 40 mg PO QDAY 10/09/19 12/08/19 12/07/19 20:00 History Acetaminophen [Acetaminophen TAB] 650 mg PO Q4H PRN #15 tablet 10/13/19 12/01/19 Unknown Rx Active Medications: Generic Name Dose Route Start Last Admin Trade Name Freq PRN Reason Stop Dose Admin Acetaminophen 650 mg 12/08/19 10:56 Tylenol PO Q4H PRN Pain, Mild (1-3)/Fever > 100.5 Fentanyl 50 mcg 12/08/19 08:38 Sublimaze IV Q5MIN PRN Pain , Severe (7-10) Sodium Chloride 1,000 mls @ 42 mls/hr 12/08/19 08:45 12/08/19 09:10 Nacl 0.9% 1000 Ml IV 42 mls/hr DIRECT SHIVA Administration Potassium Chloride/Dextrose/Sod Cl 20 meq in 1,000 mls @ 125 mls/hr 12/08/19 11:00 12/08/19 23:45 D5w/0.45% Nacl/Kcl 20 Meq IV 125 mls/hr DIRECT SHIVA Administration Ondansetron HCl 4 mg 12/08/19 10:56 Zofran IV Q8H PRN Nausea And Vomiting Oxycodone/Acetaminophen 2 tab 12/08/19 10:56 Percocet 5/325 PO Q6H PRN Pain, Moderate (4-6) Sodium Chloride 2,000 ml 12/08/19 18:00 12/09/19 05:25 Nacl 0.9% IR 2,000 ml DIRECT SHIVA Administration Zolpidem Tartrate 5 mg 12/08/19 10:56 Ambien PO QHS PRN Sleep
--- NOTE | 2019-12-09 09:35 | Discharge Summary ---
Short Stay Discharge Plan Activity: other (no straining ) Weight Bearing Status: Full Weight Bearing Diet: low fat, low cholesterol, low salt Durable Medical Equipment Needed Upon Discharge: other (spt ) Follow up with: MISSY SUAZO MD [Primary Care Provider] - 7 Days DALLAS NETTLES MD [Staff Physician] - 7 Days
[2019-12-09 13:29] VITALS: BP 117/71
== END 2019-12-09 14:21 | disposition home or self-care (01) ==
LOC: OR 07:52 → 3A 10:56 → 3B-SURG 14:41
PROVIDERS: ADMIT Urology; ATTEND Urology
DX: R33.9 Retention of urine, unspecified (principal); Z79.82 Long term (current) use of aspirin
CPT/HCPCS: 36415; 52601; 74018; 80053; 85025; 86850; 86900; 86901; 88305; 96365; 96366; A4217; G0378; J0690; J1170; J2405; J2704; J7030

== ENCOUNTER 2020-08-24 20:06 | Emergency (ER) | payer MEDICARE ==
--- NOTE | 2020-08-24 21:15 | Emergency Department Report ---
ED Male HPI - General Chief complaint: Urogenital-Male Stated complaint: BLOOD IN URINE/PAINFUL Time Seen by Provider: 08/24/20 21:08 Source: family Mode of arrival: Wheelchair Limitations: Physical Limitation - History of Present Illness Initial comments: 59-year-old male with cerebral palsy presents complaining of blood from superpubic catheter x1 day. 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 Patient complains of of pain to his genital area. No reports of fever. Patient has had a suprapubic catheter since November and is a patient of Dr. Nettles urologist patient currently has a suprapubic cath changed once a month and was recently changed by visiting nurse 2 weeks ago. Brother states that catheter seems to have normal urinary output. - Related Data Home Medications Medication Instructions Recorded Confirmed Last Taken Aspirin 81 mg PO QDAY 10/09/19 08/24/20 12/01/19 09:00 AtorvaSTATin 10 mg PO QHS 10/09/19 08/24/20 12/07/19 20:00 Citalopram [Celexa] 40 mg PO QDAY 10/09/19 08/24/20 12/07/19 20:[address] [Park Tellez] 75 mg PO BID 08/24/20 08/24/20 Unknown Previous Rx's Medication Instructions Recorded Last Taken Type Acetaminophen [Acetaminophen TAB] 650 mg PO Q4H PRN #15 tablet 10/13/19 Unknown Rx cephALEXin [Keflex] 500 mg PO Q6HR #40 capsule 08/25/20 Unknown Rx Allergies Allergy/AdvReac Type Severity Reaction Status Date / Time No Known Allergies Allergy Verified 12/08/19 08:46 ED Review of Systems ROS: Stated complaint: BLOOD IN URINE/PAINFUL Other details as noted in HPI Comment: All other systems reviewed and negative ED Past Medical Hx - Past Medical History Hx Hypertension: No (HLD) Hx CVA: Yes (right sided weakness) Hx Congestive Heart Failure: No Hx Diabetes: No Hx Seizures: Yes (X 1 CHILD- NO MEDS ADULT) Hx Asthma: No Hx COPD: No Hx HIV: No Additional medical history: mini stroke - Surgical History Additional Surgical History: bilateral leg surgery - Social History Smoking Status: Never Smoker - Medications Home Medications: Home Medications Medication Instructions Recorded Confirmed Last Taken Type Aspirin 81 mg PO QDAY 10/09/19 08/24/20 12/01/19 09:00 History AtorvaSTATin 10 mg PO QHS 10/09/19 08/24/20 12/07/19 20:00 History Citalopram [Celexa] 40 mg PO QDAY 10/09/19 08/24/20 12/07/19 20:00 History Acetaminophen [Acetaminophen TAB] 650 mg PO Q4H PRN #15 tablet 10/13/19 08/24/[address] [Park Tellez] 75 mg PO BID 08/24/20 08/24/20 Unknown History cephALEXin [Keflex] 500 mg PO Q6HR #40 capsule 08/25/20 Unknown Rx ED Physical Exam - General Limitations: Physical Limitation - Other Other exam information: General: No acute distress Head: Atraumatic Eyes: normal appearance ENT: Moist mucous membranes Neck: Normal appearance, no midline tenderness Chest: Clear to auscultation bilaterally CV: Regular rate and rhythm Abdomen: Soft, normal bowel sounds, nontender, firm and appears to be distended no rebound or guarding suprapubic catheter. Bedside ultrasound performed by me does not reveal any urinary retention : Pain with movement of suprapubic catheter that radiates to the penis. Brother states that patient has pain with suprapubic catheter movement chronically. No testicular tenderness or pain on palpation Back: Normal inspection Extremity: Normal inspection, full range of motion Neuro: Alert O x 3, no facial asymmetry, speech clear, no gross motor sensory deficit Psych: Appropriate behavior Skin: No rash ED Course Vital Signs 08/24/20 08/24/20 08/24/20 20:15 21:20 21:26 Temperature 97.2 F L Pulse Rate 117 H Respiratory 17 Rate Blood Pressure 162/103 156/108 Blood Pressure [Left] O2 Sat by Pulse 94 96 95 Oximetry 08/24/20 08/24/20 08/24/20 22:00 23:00 23:15 Temperature Pulse Rate 91 H Respiratory 18 Rate Blood Pressure 124/104 146/97 Blood Pressure 140/93 [Left] O2 Sat by Pulse 95 96 97 Oximetry ED Medical Decision Making - Lab Data Result diagrams: 08/24/20 20:44 08/24/20 20:44 - EKG Data -: EKG Interpreted by Me EKG shows normal: sinus rhythm, ST-T waves (No STEMI) Rate: tachycardia (111) - Radiology Data Radiology results: report reviewed CT ABDOMEN AND PELVIS WITHOUT CONTRAST INDICATION / CLINICAL INFORMATION: Pt complains of pain at supabubic cath, hematuria, abd firmness. TECHNIQUE: Axial CT images were obtained through the abdomen and pelvis without IV contrast. All CT scans at this location are performed using CT dose reduction for ALARA by means of automated exposure control. Exam is limited secondary to respiratory motion artifact. COMPARISON: None available. FINDINGS: LOWER CHEST: No significant abnormality. LIVER: No significant abnormality. GALLBLADDER: Cholelithiasis.. BILE DUCTS: No significant abnormality. PANCREAS: No significant abnormality. SPLEEN: No significant abnormality. ADRENALS: No significant abnormality. RIGHT KIDNEY and URETER: No significant abnormality. LEFT KIDNEY and URETER: No significant abnormality. STOMACH and SMALL BOWEL: No significant abnormality. COLON: No significant abnormality. APPENDIX: No significant abnormality. PERITONEUM: No free fluid. No free air. No fluid collection. LYMPH NODES: No significant adenopathy. AORTA and ARTERIES: No significant abnormality. IVC and VEINS: No significant abnormality. URINARY BLADDER: There is a suprapubic catheter. Urinary bladder is diffusely abnormal in appearance with severe urinary bladder wall thickening. Multiple calculi are seen along the wall in the lumen of the urinary bladder.. There is mild ventral abdominal wall hernia at the level of the suprapubic catheter. REPRODUCTIVE ORGANS: No significant abnormality. ADDITIONAL FINDINGS: Fat-containing left inguinal hernia.. SKELETAL SYSTEM: No significant abnormality. IMPRESSION: There are bladder is collapsed but severely thickened concerning for underlying cystitis. Multiple calculi are identified along the wall of the urinary bladder/lumen. There is a small hernia along the ventral abdominal wall at the level of the suprapubic catheter. - Medical Decision Making Urine collected from Jett port and reveals signs of UTI. Previous sensitivities from September 2019 revealed E. coli UTI infection that was resistant to fluoroquinolones but sensitive to cephalosporins therefore patient will be treated with Keflex. Patient does not have signs of sepsis at this time. CT consistent with cystitis. Small ventral hernia noted at area of Jett catheter insertion. No home hematuria in the ED with normal H&H and vital signs normal at discharge. Patient will be discharged home on antibiotics and recommended to follow-up with urology as outpatient. Critical Care Time: No Critical care attestation.: If time is entered above; I have spent that time in minutes in the direct care of this critically ill patient, excluding procedure time. ED Disposition Clinical Impression: Cystitis, Cerebral palsy, Suprapubic catheter Disposition: TO HOME OR SELFCARE Is pt being admited?: No Does the pt Need Aspirin: No Condition: Stable Instructions: Urinary Tract Infection in Men (ED), How to Care for Your Suprapubic Catheter (ED), Acute Hematuria (ED) Additional Instructions: Take the medication as prescribed. Follow-up with your urologist. Return if symptoms worsen as indicated by your discharge instructions. Prescriptions: cephALEXin [Keflex] 500 mg PO Q6HR #40 capsule Referrals: MISSY SUAZO MD [Primary Care Provider] - 3-5 Days DALLAS NETTLES MD [Staff Physician] - 2-3 Days Time of Disposition: 00:34
[2020-08-24 21:16] LABS: Basophils # (Auto) 0.1 K/mm3 (0.0-0.1); Basophils % (Auto) 0.8 % (0.0-1.8); Eosinophils # (Auto) 0.1 K/mm3 (0.0-0.4); Eosinophils % (Auto) 1.4 % (0.0-4.3); Hematocrit 49.2 % (35.5-45.6); Hemoglobin 17.1 gm/dl (11.8-15.2); Lymphocytes # (Auto) 2.1 K/mm3 (1.2-5.4); Lymphocytes % (Auto) 23.4 % (13.4-35.0); Mean Corpuscular HGB Conc 35 % (32-34); Mean Corpuscular Volume 90 fl (84-94); Monocytes # (Auto) 0.8 K/mm3 (0.0-0.8); Monocytes % (Auto) 9.2 % (0.0-7.3); Platelet Count 268 K/mm3 (140-440); Red Blood Count 5.45 M/mm3 (3.65-5.03); Red Cell Distribution Width 13.9 % (13.2-15.2)
[2020-08-24 21:31] LABS: Alanine Aminotransferase 19 units/L (7-56); Albumin 3.9 g/dL (3.9-5); BUN/Creatinine Ratio 19; Blood Urea Nitrogen 17 mg/dL (9-20); Calcium 9.2 mg/dL (8.4-10.2); Hemolysis Index 27
[2020-08-24 22:05] LABS: Bacteria,Urine 4+ /HPF (Negative); Bilirubin,Urine NEG (Negative); Blood,Urine LG (Negative); Color,Urine Yellow (Yellow); Mucus,Urine 3+ /HPF; Urobilinogen,Urine < 2.0 mg/dL (<2.0)
[2020-08-24 22:06] LABS: WBC,Urine > 182.0 /HPF (0.0-6.0)
[2020-08-24] MEDS ORDERED: cephALEXin 500 MG CAP PO ONE (23:01)
[2020-08-24 23:53] VITALS: BP 140/93
--- NOTE | 2020-08-25 00:17 | Cat Scan Report ---
CT ABDOMEN AND PELVIS WITHOUT CONTRAST INDICATION / CLINICAL INFORMATION: Pt complains of pain at supabubic cath, hematuria, abd firmness. TECHNIQUE: Axial CT images were obtained through the abdomen and pelvis without IV contrast. All CT scans at [facility] location are performed using CT dose reduction for ALARA by means of automated exposure control. E xam is limited secondary to respiratory motion artifact. COMPARISON: None available. FINDINGS: LOWER CHEST: No significant abnormality. LIVER: No significant abnormality. GALLBLADDER: Cholelithiasis.. BILE DUCTS: No significant abnormality. PANCREAS: No significant abnormality. SPLEEN: No significant abnormality. ADRENALS: No significant abnormality. RIGHT KIDNEY and URETER: No significant abnormality. LEFT KIDNEY and URETER: No significant abnormality. STOMACH and SMALL BOWEL: No significant abnormality. COLON: No significant abnormality. APPENDIX: No significant abnormality. PERITONEUM: No free fluid. No free air. No fluid collection. LYMPH NODES: No significant adenopathy. AORTA and ARTERIES: No significant abnormality. IVC and VEINS: No significant abnormality. URINARY BLADDER: There is a suprapubic catheter. Urinary bladder is diffusely abnormal in appearance with severe urinary bladder wall thickening. Multiple calculi are seen along the wall in the lumen of the urinary bladder.. There is mild ventral abdominal wall hernia at the level of the suprapubic cat heter. REPRODUCTIVE ORGANS: No significant abnormality. ADDITIONAL FINDINGS: Fat-containing left inguinal hernia.. SKELETAL SYSTEM: No significant abnormality. IMPRESSION: There are bladder is collapsed but severely thickened concerning for underlying cystitis. Multiple ca lculi are identified along the wall of the urinary bladder/lumen. There is a small hernia along the v entral abdominal wall at the level of the suprapubic catheter. Signer Name: Puma Jones MD Signed: 08/25/2020 12:13 AM Workstation Name: [id number]
== END 2020-08-25 01:21 | disposition home or self-care (01) ==
LOC: ED 20:06
DX: N30.91 Cystitis, unspecified with hematuria (principal); G80.9 Cerebral palsy, unspecified; K43.9 Ventral hernia without obstruction or gangrene; Z46.6 Encounter for fitting and adjustment of urinary device; R56.9 Unspecified convulsions; Z86.73 Personal history of transient ischemic attack (TIA), and cerebral infarction without residual deficits; Z79.899 Other long term (current) drug therapy
CPT/HCPCS: 36415; 74176; 80053; 81001; 82140; 85025; 87040; 87086; 93005

== ENCOUNTER 2021-05-15 13:00 | Emergency (ER) | payer MEDICARE ==
[2021-05-15 14:29] VITALS: BP 153/105
[2021-05-15] MEDS ORDERED: MORPHINE 2 MG/1 ML INJ IV ONE (20:48)
[2021-05-15] MEDS ORDERED: ONDANSETRON 4 MG/2 ML INJ IV ONE (20:48)
[2021-05-15 21:12] LABS: Basophils # (Auto) 0.1 K/mm3 (0.0-0.1); Basophils % (Auto) 0.8 % (0.0-1.8); Eosinophils # (Auto) 0.2 K/mm3 (0.0-0.4); Eosinophils % (Auto) 1.5 % (0.0-4.3); Hematocrit 53.5 % (35.5-45.6); Hemoglobin 18.1 gm/dl (11.8-15.2); Lymphocytes # (Auto) 2.9 K/mm3 (1.2-5.4); Lymphocytes % (Auto) 22.2 % (13.4-35.0); Mean Corpuscular HGB Conc 34 % (32-34); Mean Corpuscular Volume 91 fl (84-94); Monocytes # (Auto) 1.1 K/mm3 (0.0-0.8); Monocytes % (Auto) 8.7 % (0.0-7.3); Platelet Count 294 K/mm3 (140-440); Red Blood Count 5.87 M/mm3 (3.65-5.03); Red Cell Distribution Width 14.6 % (13.2-15.2)
[2021-05-15 21:26] LABS: Alanine Aminotransferase 30 units/L (7-56); Albumin 4.4 g/dL (3.9-5); BUN/Creatinine Ratio 14; Blood Urea Nitrogen 11 mg/dL (9-20); Calcium 9.1 mg/dL (8.4-10.2); Hemolysis Index 59
[2021-05-15 22:22] LABS: Bilirubin,Urine NEG (Negative); Blood,Urine NEG (Negative); Color,Urine Colorless (Yellow); Protein,Urine <15 mg/dL mg/dL (Negative); Urobilinogen,Urine < 2.0 mg/dL (<2.0)
[2021-05-15 22:23] LABS: RBC,Urine < 1.0 /HPF (0.0-6.0); WBC,Urine < 1.0 /HPF (0.0-6.0)
[2021-05-15 23:11] LABS: Bacteria,Urine 3+ /HPF (Negative); Bilirubin,Urine NEG (Negative); Blood,Urine LG (Negative); Color,Urine Yellow (Yellow); Mucus,Urine 1+ /HPF; Urobilinogen,Urine < 2.0 mg/dL (<2.0); WBC,Urine > 182.0 /HPF (0.0-6.0)
[2021-05-15] MEDS ORDERED: cefTRIAXone/NS 1 GM/50 ML 1 GM/50 ML BAG IV ONE (23:28)
--- NOTE | 2021-05-16 00:55 | Cat Scan Report ---
CT ABDOMEN AND PELVIS WITH CONTRAST INDICATION / CLINICAL INFORMATION: Pelvic pain, possible UTI. TECHNIQUE: Axial CT images were obtained through the abdomen and pelvis after 100 cc Omnipaque [address] scans at this location are performed using CT dose reduction for ALARA by means of automated exposure control. COMPARISON: CT abdomen and pelvis without contrast from 08/24/2020. FINDINGS: LOWER CHEST: There is mild dependent bilateral atelectasis without other significant abnormalities. LIVER: No significant abnormality. GALLBLADDER: Cholelithiasis is noted without evidence of acute cholecystitis. BILE DUCTS: No significant abnormality. PANCREAS: No significant abnormality. SPLEEN: No significant abnormality. ADRENALS: No significant abnormality. RIGHT KIDNEY / URETER: No significant abnormality. LEFT KIDNEY / URETER: No significant abnormality. STOMACH / SMALL BOWEL: No significant abnormality. COLON: Contains a large amount of stool without other significant abnormalities. APPENDIX: No significant abnormality. PERITONEUM: No free fluid. No free air. No fluid collection. LYMPH NODES: No significant adenopathy. AORTA / ARTERIES: No significant abnormality. IVC / VEINS: No significant abnormality. URINARY BLADDER: Drained by a suprapubic catheter. Small calcifications are again noted within the bl adder wall/dependent lumen mild perivesical fat stranding is again seen. No other significant abnorma lity. REPRODUCTIVE ORGANS: No significant abnormality. ADDITIONAL FINDINGS: Unchanged, uncomplicated left inguinal and ventral hernias. SKELETAL SYSTEM: No significant abnormality. IMPRESSION: 1. Thickening of the urinary bladder is likely due to it being drained by a suprapubic catheter. Give n the presence of mild perivesical fat stranding, cystitis cannot be excluded. 2. No other acute findings or significant interval changes. Signer Name: Piyush Hoyt MD Signed: 05/16/2021 12:50 AM Workstation Name: [id number]
--- NOTE | 2021-05-16 02:00 | Emergency Department Report ---
ED Male HPI - General Chief complaint: Urogenital-Male Stated complaint: UTI Source: family Mode of arrival: Wheelchair Limitations: Other - History of Present Illness Initial comments: Patient is a 60-year-old white male with a history of CVA with right-sided hemiparesis and seizures and who uses suprapubic catheter presents to the ED with complaint of acute onset persistent suprapubic pain and pressure that radiates to the lower back for the last 2 weeks, worse in the last 2 days. Patient states that he suspects that he may be having another bout of urinary tract infection as he has had similar symptoms before with urinary tract infection. Patient denies fever, chills, nausea, vomiting, headache, dizziness, syncope, chest pain, shortness of breath, diarrhea, hematuria, numbness and tingling or weakness of lower extremities bilaterally. MD Complaint: other (suprapubic pain; low back pain) -: Sudden, week(s) (2) Location: abdomen (suprapubic) Radiation: none Severity: severe Severity scale (0 -10): 7 Quality: aching, sharp Consistency: constant Improves with: none Worsens with: palpation denies other symptoms. denies: discharge, swelling, mass, rash, urinary retention, blood in urine, fever, other - Related Data Sexually active: No Home Medications Medication Instructions Recorded Confirmed Last Taken Aspirin 81 mg PO QDAY 10/09/19 08/24/20 12/01/19 09:00 AtorvaSTATin 10 mg PO QHS 10/09/19 08/24/20 12/07/19 20:00 Citalopram [Celexa] 40 mg PO QDAY 10/09/19 08/24/20 12/07/19 20:00 Previous Rx's Medication Instructions Recorded Last Taken Type Acetaminophen [Acetaminophen TAB] 650 mg PO Q4H PRN #15 tablet 10/13/19 Unknown Rx cephALEXin [Keflex] 500 mg PO Q6HR #40 capsule 08/25/[address] [Park Tellze] 75 mg PO Q12H PRN #30 05/16/21 Unknown Rx Ondansetron [Zofran Odt] 4 mg PO Q6HR PRN #15 tab.rapdis 05/16/21 Unknown Rx Sulfamethoxazole/Trimethoprim 1 each PO Q12H #20 tablet 05/16/21 Unknown Rx [Bactrim DS TAB] Allergies Allergy/AdvReac Type Severity Reaction Status Date / Time No Known Allergies Allergy Verified 05/15/21 14:23 ED Review of Systems ROS: Stated complaint: UTI Other details as noted in HPI Constitutional: denies: chills, fever Eyes: denies: eye pain, eye discharge, vision change ENT: denies: ear pain, throat pain Respiratory: denies: cough, shortness of breath, wheezing Cardiovascular: denies: chest pain, palpitations Endocrine: no symptoms reported Gastrointestinal: denies: abdominal pain, nausea, vomiting, diarrhea Genitourinary: other (suprapubic pressure). denies: urgency, dysuria Musculoskeletal: back pain (low back pain). denies: joint swelling, arthralgia Skin: denies: rash, lesions Neurological: denies: headache, weakness, paresthesias Psychiatric: denies: anxiety, depression Hematological/Lymphatic: denies: easy bleeding, easy bruising ED Past Medical Hx - Past Medical History Hx Hypertension: No (HLD) Hx CVA: Yes (right sided weakness) Hx Congestive Heart Failure: No Hx Diabetes: No Hx Seizures: Yes (X 1 CHILD- NO MEDS ADULT) Hx Asthma: No Hx COPD: No Hx HIV: No Additional medical history: mini stroke/ - Surgical History Additional Surgical History: bilateral leg surgery - Social History Smoking Status: Never Smoker - Medications Home Medications: Home Medications Medication Instructions Recorded Confirmed Last Taken Type Aspirin 81 mg PO QDAY 10/09/19 08/24/20 12/01/19 09:00 History AtorvaSTATin 10 mg PO QHS 10/09/19 08/24/20 12/07/19 20:00 History Citalopram [Celexa] 40 mg PO QDAY 10/09/19 08/24/20 12/07/19 20:00 History Acetaminophen [Acetaminophen TAB] 650 mg PO Q4H PRN #15 tablet 10/13/19 08/24/20 Unknown Rx cephALEXin [Keflex] 500 mg PO Q6HR #40 capsule 08/25/[address] [Voltaren Dr] 75 mg PO Q12H PRN #30 05/16/21 Unknown Rx Ondansetron [Zofran Odt] 4 mg PO Q6HR PRN #15 tab.rapdis 05/16/21 Unknown Rx Sulfamethoxazole/Trimethoprim 1 each PO Q12H #20 tablet 05/16/21 Unknown Rx [Bactrim DS TAB] ED Physical Exam - General Limitations: Other General appearance: alert, in no apparent distress - Head Head exam: Present: atraumatic, normocephalic, normal inspection - Eye Eye exam: Present: normal appearance, PERRL, EOMI Pupils: Present: normal accommodation - ENT ENT exam: Present: normal exam, normal orophraynx, mucous membranes moist, TM's normal bilaterally, normal external ear exam - Neck Neck exam: Present: normal inspection, full ROM - Respiratory Respiratory exam: Present: normal lung sounds bilaterally. Absent: respiratory distress, wheezes, rales, rhonchi, chest wall tenderness, accessory muscle use, decreased breath sounds - Cardiovascular Cardiovascular Exam: Present: regular rate, normal rhythm, normal heart sounds. Absent: systolic murmur, diastolic murmur, rubs, gallop - GI/Abdominal GI/Abdominal exam: Present: soft, tenderness (Palpable mild suprapubic tenderness; the incision site of suprapubic catheter shows no sign of infection on the skin), normal bowel sounds. Absent: guarding, rebound, hyperactive bowel sounds, hypoactive bowel sounds, organomegaly - Extremities Exam Extremities exam: Present: normal inspection, full ROM, normal capillary refill - Back Exam Back exam: Present: normal inspection, full ROM. Absent: tenderness, CVA tenderness (R), CVA tenderness (L), muscle spasm, paraspinal tenderness, vertebral tenderness - Neurological Exam Neurological exam: Present: alert, oriented X3, CN II-XII intact, normal gait, reflexes normal - Psychiatric Psychiatric exam: Present: normal affect, normal mood - Skin Skin exam: Present: warm, dry, intact, normal color. Absent: rash ED Course Vital Signs 05/15/21 14:27 Temperature 98.2 F Pulse Rate 97 H Respiratory 20 Rate Blood Pressure 153/105 O2 Sat by Pulse 93 Oximetry ED Medical Decision Making - Lab Data Result diagrams: 05/15/21 20:53 05/15/21 20:53 - Radiology Data Radiology results: report reviewed, image reviewed [facility] [address] [place] [address] Cat Scan Report Signed Patient: MEG GTZ MR#: [id number] : 1960 Acct:[id number] Age/Sex: 60 / M ADM Date: 05/15/21 Loc: ED Attending Dr: Ordering Physician: LOU MONTELONGO Date of Service: 05/15/21 Procedure(s): CT abdomen pelvis w con Accession Number(s): [id number] cc: LOU MONTELONGO CT ABDOMEN AND PELVIS WITH CONTRAST INDICATION / CLINICAL INFORMATION: Pelvic pain, possible UTI. TECHNIQUE: Axial CT images were obtained through the abdomen and pelvis after 100 cc Omnipaque [address] scans at this location are performed using CT dose reduction for ALARA by means of automated exposure control. COMPARISON: CT abdomen and pelvis without contrast from 08/24/2020. FINDINGS: LOWER CHEST: There is mild dependent bilateral atelectasis without other significant abnormalities. LIVER: No significant abnormality. GALLBLADDER: Cholelithiasis is noted without evidence of acute cholecystitis. BILE DUCTS: No significant abnormality. PANCREAS: No significant abnormality. SPLEEN: No significant abnormality. ADRENALS: No significant abnormality. RIGHT KIDNEY / URETER: No significant abnormality. LEFT KIDNEY / URETER: No significant abnormality. STOMACH / SMALL BOWEL: No significant abnormality. COLON: Contains a large amount of stool without other significant abnormalities. APPENDIX: No significant abnormality. PERITONEUM: No free fluid. No free air. No fluid collection. LYMPH NODES: No significant adenopathy. AORTA / ARTERIES: No significant abnormality. IVC / VEINS: No significant abnormality. URINARY BLADDER: Drained by a suprapubic catheter. Small calcifications are again noted within the bladder wall/dependent lumen mild perivesical fat stranding is again seen. No other significant abnormality. REPRODUCTIVE ORGANS: No significant abnormality. ADDITIONAL FINDINGS: Unchanged, uncomplicated left inguinal and ventral hernias. SKELETAL SYSTEM: No significant abnormality. IMPRESSION: 1. Thickening of the urinary bladder is likely due to it being drained by a suprapubic catheter. Given the presence of mild perivesical fat stranding, cystitis cannot be excluded. 2. No other acute findings or significant interval changes. Signer Name: Piyush Hoyt MD Signed: 05/16/2021 12:50 AM Workstation Name: [id number] Transcribed By: ROBERT Dictated By: Piyush Hoyt MD Electronically Authenticated By: Piyush Hoyt MD Signed Date/Time: 05/16/21 005 DD/ TD/TT: Print - Medical Decision Making This is a 60-year-old white male with a history of CVA with right-sided hemiparesis and seizures and who uses suprapubic catheter presents to the ED with complaint of acute onset persistent suprapubic pain and pressure that radiates to the lower back for the last 2 weeks, worse in the last 2 days. Patient states that he suspects that he may be having another bout of urinary tract infection as he has had similar symptoms before with urinary tract infection. In the ED, patient is alert and oriented x3 and is not in any distress. Patient was treated for pain in the ED and lab test results were reviewed and are all nonactionable except for urinary tract infection that was significant in urinalysis. Patient also received Rocephin 1 g IV x1. Abdomen pelvis CT scan with contrast showed thickening of the urinary bladder is likely due to it being drained by a suprapubic catheter. Given the presence of mild perivesical fat stranding, cystitis cannot be excluded. Otherwise no other acute findings or significant interval changes. On reevaluation, patient's pain is well controlled medications. Patient will discharge home on pain medications and antibiotics and advised to follow-up with his urologist Dr. Nettles in 3 to 5 days for reevaluation. Patient was also advised to return to the ED immediately if symptoms get worse. - Differential Diagnosis UTI; Pyelonephritis; Cystitis; muscle spasm Critical care attestation.: If time is entered above; I have spent that time in minutes in the direct care of this critically ill patient, excluding procedure time. ED Disposition Clinical Impression: Complicated UTI (urinary tract infection), Acute urinary tract infection Disposition: DC-01 TO HOME OR SELFCARE Is pt being admited?: No Does the pt Need Aspirin: No Condition: Stable Instructions: Antibiotic Medicine, Adult, [id number], Urinary Tract Infection, Adult, [id number] Additional Instructions: All lab test results were reviewed and are all nonactionable except for urinalysis that showed significant urinary tract infection. The abdomen pelvis CT scan with contrast showed no acute abnormalities except for thickening of the urinary bladder is likely due to it being drained by a suprapubic catheter. Given the presence of mild perivesical fat stranding, cystitis cannot be excluded. Therefore your symptoms are likely due to urinary tract infection or infection in your bladder. Therefore take pain medications and antibiotics with food, drink plenty of fluids and follow-up with your urologist Dr. Nettles in the next 5 to 7 days for reevaluation. Return to the ED immediately if symptoms get worse. Prescriptions: Sulfamethoxazole/Trimethoprim [Bactrim DS TAB] 1 each PO Q12H #[address] [Voltaren Dr] 75 mg PO Q12H PRN #30 PRN Reason: Pain , Severe (7-10) Ondansetron [Zofran Odt] 4 mg PO Q6HR PRN #15 tab.rapdis PRN Reason: Nausea Referrals: [facility] [Provider Group] - 3-5 Days DALLAS NETTLES MD [Staff Physician] - 3-5 Days Time of Disposition: 02:00 Print Language: [place]
== END 2021-05-16 02:53 | disposition home or self-care (01) ==
LOC: ED 13:00
DX: N39.0 Urinary tract infection, site not specified (principal); Z86.73 Personal history of transient ischemic attack (TIA), and cerebral infarction without residual deficits
CPT/HCPCS: 36415; 74177; 80053; 81001; 85025; 96365; 96366; 96375; 99284; J0696; J2270; J2405; Q9967